=== PATIENT | female | born 1955 | race Hispanic/Latino ===

== ENCOUNTER 2019-11-08 09:40 | Emergency (ER) | payer OTHER ==
[2019-11-08] MEDS ORDERED: HYDROCODONE/APAP 5/325 MG TAB ONE (10:36)
--- NOTE | 2019-11-08 10:50 | RAD REPORT ---
EXAM DESCRIPTION: RAD - Hip Left 2 View - 11/08/2019 10:25 am CLINICAL HISTORY: PAIN COMPARISON: No comparisons FINDINGS: AP and frogleg views of the left hip were obtained. There is no fracture or dislocation. No AVN or focal femoral head abnormality. There are minimal dege nerative changes along the articular margins of the femoral head and acetabular rim. Medial joint spa ce is narrowed. No periarticular mass or hematoma. No soft tissue abnormality. IMPRESSION: Mild hip joint degenerative change with no acute findings seen.
--- NOTE | 2019-11-08 11:03 | ER ---
Nurse's Notes [facility] Name: Shantelle Hoover Age: 64 yrs Sex: Female : 1955 Arrival Date: 11/08/2019 Time: 09:46 Bed 20 Private MD: None, None Diagnosis: Contusion of left hip Presentation: 11/07 10:14 Chief complaint: Patient states: she fell 2 weeks ago on her left hip and is having pain with walking and activity. Coronavirus screen: Proceed with normal triage. Ebola Screen: No symptoms or risks identified at this time. Initial Sepsis Screen: Does the patient meet any 2 criteria? No. Patient's initial sepsis screen is negative. Does the patient have a suspected source of infection? No. Patient's initial sepsis screen is negative. Risk Assessment: Do you want to hurt yourself or someone else? Patient reports no desire to harm self or others. Onset of symptoms is unknown. 10:14 Method Of Arrival: Wheelchair 10:14 Acuity: JONATHAN 4 Historical: - Allergies: 10:20 No Known Allergies; - Home Meds: 10:20 Ibuprofen Oral [Active]; Acetaminophen Oral [Active]; alendronate oral oral [Active]; - PMHx: 10:20 Osteoporosis; - PSHx: 10:20 Hysterectomy; - Immunization history:: Adult Immunizations up to date. - Social history:: Smoking status: Patient denies any tobacco usage or history of. Patient/guardian denies using alcohol. Screenin:24 Abuse screen: Denies threats or abuse. Nutritional screening: No deficits noted. Tuberculosis screening: No symptoms or risk factors identified. Fall Risk None identified. Assessment: 10:21 General: Appears in no apparent distress. Behavior is calm, cooperative. Pain: Complains of pain in left hip Pain radiates to left leg Pain at worst was 10 out of 10 on a pain scale. Quality of pain is described as stabbing, Pain began 2 weeks ago Alleviated by medications, rest, Aggravated by increased activity, weight bearing. Neuro: Oriented to person, place, time, situation. Cardiovascular: Capillary refill < 3 seconds Patient's skin is warm and dry. Respiratory: Airway is patent Respiratory effort is even, unlabored. Derm: Skin is intact, is healthy with good turgor. Musculoskeletal: Range of motion: limited in left hip. Vital Signs: 10:00 BP 133 / 66; Pulse 50; Resp 16; Pulse Ox 100% ; ah 10:14 BP 133 / 66; Pulse 51; Resp 17; Temp 98.5; Pulse Ox 98% ; Weight 90.72 kg; Height 5 ft. ah 6 in. (167.64 cm); Pain 1/10; 11:00 BP 113 / 76; Pulse 46; Resp 16; Pulse Ox 95% ; ah 11:45 BP 116 / 60; Pulse 45; Resp 16; Pulse Ox 97% ; ah 10:14 Body Mass Index 32.28 (90.72 kg, 167.64 cm) ah 10:14 pain is 10/10 while walking ED Course: 09:46 Patient arrived in ED. dp 09:47 None, None is Private Physician. dp 09:54 Shalini Cardoso, RN is Primary Nurse. 09:54 Casey Kline NP is PHCP. pm1 09:54 Walt Thurston MD is Attending Physician. pm1 10:16 Triage completed. 10:24 Hip Left 2 View XRAY In Process Unspecified. EDMS 11:30 No provider procedures requiring assistance completed. Patient did not have IV access during this emergency room visit. 11:30 Patient has correct armband on for positive identification. Bed in low position. Call light in reach. Side rails up X 1. Administered Medications: 10:30 Drug: [place] 5 mg-325 mg 1 tabs Route: PO; 11:19 Follow up: Response: No adverse reaction 11:05 Drug: Lidoderm 5 % (700 mg/patch) 1 patches {Note: left hip.} Route: Topical; Site: affected area; 12:33 Follow up: Response: No adverse reaction Outcome: 11:02 Discharge ordered by . pm1 11:45 Discharged to home via wheelchair. 11:45 Condition: good 11:45 Discharge instructions given to patient, Instructed on discharge instructions, follow up and referral plans. medication usage, Demonstrated understanding of instructions, follow-up care, medications, Prescriptions given X 1. 12:33 Patient left the ED. Signatures: Dispatcher [employer] EDNE Casey Kline NP [employer] pm1 Quintin Fisher Amy, RN RN Corrections: (The following items were deleted from the chart) 12:31 11:00 BP 133 / 66; Pulse 50bpm; Resp 16bpm; Pulse Ox 100%; [facility]
--- NOTE | 2019-11-08 11:04 | EDPHYS ---
Physician Documentation [facility] Name: Shantelle Hoover Age: 64 yrs Sex: Female : 1955 Arrival Date: 11/08/2019 Time: 09:46 Bed 20 Private MD: None, None ED Physician Walt Thurston HPI: 11/07 10:32 This 64 yrs old Female presents to ER via Wheelchair with complaints of Hip pm1 pain. 10:32 The patient or guardian reports pain. sustained from a fall, while walking, There is no pm1 obvious deformity, The patient is able to self ambulate. The patient is able to bear their full body weight. There is no radiation of the patient's discomfort. The complaints affect the left hip. Onset: The symptoms/episode began/occurred 2 week(s) ago. Modifying factors: The symptoms are alleviated by rest, the symptoms are aggravated by weight bearing, walking. Associated signs and symptoms: Loss of consciousness: the patient experienced no loss of consciousness, Pertinent negatives: chest pain, dysuria, fever, nausea, shortness of breath, vomiting, numbness, weakness. Severity of symptoms: in the emergency department the symptoms are actually worse. The patient has not experienced similar symptoms in the past. The patient has not recently seen a physician. Historical: - Allergies: 10:20 No Known Allergies; ah - Home Meds: 10:20 Ibuprofen Oral [Active]; Acetaminophen Oral [Active]; alendronate oral oral [Active]; ah - PMHx: 10:20 Osteoporosis; ah - PSHx: 10:20 Hysterectomy; ah - Immunization history:: Adult Immunizations up to date. - Social history:: Smoking status: Patient denies any tobacco usage or history of. Patient/guardian denies using alcohol. ROS: 10:32 Constitutional: Negative for fever, chills, and weight loss, Eyes: Negative for injury, pm1 pain, redness, and discharge, ENT: Negative for injury, pain, and discharge, Neck: Negative for injury, pain, and swelling, Cardiovascular: Negative for chest pain, palpitations, and edema, Respiratory: Negative for shortness of breath, cough, wheezing, and pleuritic chest pain, Abdomen/GI: Negative for abdominal pain, nausea, vomiting, diarrhea, and constipation, Back: Negative for injury and pain. 10:32 Skin: Negative for injury, rash, and discoloration, Neuro: Negative for headache, weakness, numbness, tingling, and seizure. 10:32 MS/extremity: Positive for pain, of the left hip, Negative for decreased range of motion, deformity. Exam: 10:32 Constitutional: This is a well developed, well nourished patient who is awake, alert, pm1 and in no acute distress. Head/Face: Normocephalic, atraumatic. Neck: Trachea midline, no thyromegaly or masses palpated, and no cervical lymphadenopathy. Supple, full range of motion without nuchal rigidity, or vertebral point tenderness. No Meningismus. Chest/axilla: Normal chest wall appearance and motion. Nontender with no deformity. No lesions are appreciated. 10:32 Back: No spinal tenderness. No costovertebral tenderness. Full range of motion. Skin: Warm, dry with normal turgor. Normal color with no rashes, no lesions, and no evidence of cellulitis. 10:32 Cardiovascular: Exam negative for acute changes, Rate: normal, Rhythm: regular, Pulses: no pulse deficits are appreciated. 10:32 Respiratory: Exam negative for acute changes, respiratory distress, shortness of breath. 10:32 Abdomen/GI: Inspection: abdomen appears normal, Palpation: abdomen is soft and non-tender, in all quadrants. 10:32 Musculoskeletal/extremity: Extremities: grossly normal except: noted in the left hip: pain, There is no evidence of contusion, decreased ROM, deformity, ROM: intact in all extremities, full active range of motion, in the left hip and left leg, full passive range of motion, in the left leg and left hip, Circulation is intact in all extremities. Pulses: are normal with no appreciated deficits, noted to be 2+ in the left dorsalis pedis artery, the left leg Sensation intact. 10:32 Neuro: Exam negative for acute changes, Orientation: is normal, Mentation: is normal, Motor: moves all fours, strength is normal, strength is 5/5 in all extremities, Sensation: is normal, no obvious gross deficits. Vital Signs: 10:00 BP 133 / 66; Pulse 50; Resp 16; Pulse Ox 100% ; ah 10:14 BP 133 / 66; Pulse 51; Resp 17; Temp 98.5; Pulse Ox 98% ; Weight 90.72 kg; Height 5 ft. 6 in. (167.64 cm); Pain 1/10; 11:00 BP 113 / 76; Pulse 46; Resp 16; Pulse Ox 95% ; ah 11:45 BP 116 / 60; Pulse 45; Resp 16; Pulse Ox 97% ; ah 10:14 Body Mass Index 32.28 (90.72 kg, 167.64 cm) 10:14 pain is 10/10 while walking MDM: 09:55 Patient medically screened. pm1 11:01 Differential diagnosis: hip fracture, arthritis, strain, contusion. pm1 11:01 Data reviewed: vital signs. Data interpreted: Pulse oximetry: on room air is 98 %. pm1 Interpretation: normal. 11:01 Counseling: I had a detailed discussion with the patient and/or guardian regarding: the pm1 historical points, exam findings, and any diagnostic results supporting the discharge/admit diagnosis, radiology results, the need for outpatient follow up, to return to the emergency department if symptoms worsen or persist or if there are any questions or concerns that arise at home. 11/07 10:06 Order name: Hip Left 2 View XRAY; Complete Time: 11:00 pm1 Administered Medications: 10:30 Drug: [place] 5 mg-325 mg 1 tabs Route: PO; 11:19 Follow up: Response: No adverse reaction 11:05 Drug: Lidoderm 5 % (700 mg/patch) 1 patches {Note: left hip.} Route: Topical; Site: affected area; 12:33 Follow up: Response: No adverse reaction Disposition: 16:11 Co-signature as Attending Physician, Walt Thurston MD. rn Disposition: 11/08/19 11:02 Discharged to Home. Impression: Contusion of left hip. - Condition is Stable. - Discharge Instructions: Contusion. - Prescriptions for Tramadol 50 mg Oral Tablet - take 1 tablet by ORAL route every 8 hours as needed; 12 tablet. - Medication Reconciliation Form, Thank You Letter, Antibiotic Education, Prescription Opioid Use form. - Follow up: Emergency Department; When: As needed; Reason: Worsening of condition. Follow up: Private Physician; When: 2 - 3 days; Reason: Recheck today's complaints, Continuance of care, Re-evaluation by your physician. - Problem is new. - Symptoms have improved. Signatures: Dispatcher [employer] EDMS Walt Thurston MD MD rn Casey Kline NP [employer] pm1 Shalini Cardoso RN RN ah Corrections: (The following items were deleted from the chart) 12:33 11:02 11/08/2019 11:02 Discharged to Home. Impression: Contusion of left hip. Condition ah is Stable. Forms are Medication Reconciliation Form, Thank You Letter, Antibiotic Education, Prescription Opioid Use. Follow up: Emergency Department; When: As needed; Reason: Worsening of condition. Follow up: Private Physician; When: 2 - 3 days; Reason: Recheck today's complaints, Continuance of care, Re-evaluation by your physician. Problem is new. Symptoms have improved. pm1
[2019-11-08] MEDS ORDERED: LIDOCAINE 4% PATCH ONE (11:13)
[2019-11-08 12:43] VITALS: TEMP 98.5
[2019-11-08 12:46] VITALS: BP 116/60; O2SAT 97
== END 2019-11-08 12:33 | disposition home or self-care (01) ==
LOC: ER 09:40
DX: S70.02XA Contusion of left hip, initial encounter (principal); M81.0 Age-related osteoporosis without current pathological fracture
CPT/HCPCS: 99283

== ENCOUNTER 2022-03-01 14:07 | Emergency (ER) | payer MEDICARE ==
--- OUTSIDE RECORDS SUMMARY | 2022-03-01 14:11 | XMS REPORT | Continuity of Care Document ---
:1955 Author Organization [facility] t Address [address] [place] [address] Care Team Providers Name Role Phone PCP, PATIENT DOES NOT HAVE A Primary Care Physician Unavailjess Peralta MD, Michael Capellan Attending Clinician Love Reeves MD Attending Clinician LOVE REEVES Attending Clinician Unavailable Doctor Unassigned, [place] Attending Clinician Unavailable Radiology Attending Clinician Unavailable RADIOLOGY Attending Clinician Unavailable CHRIS CHEATHAM Attending Clinician Unavailable Nurse, Adc Pob Immunization Attending Clinician Unavailable Chris Cheatham DO Attending Clinician Provider, [facility] Attending Clinician Unavailable Rahel Walters Attending Clinician RAHEL SMITH Attending Clinician Unavailable LOVE REEVES Admitting Clinician Unavailable Payers Payer Name Policy Type Policy Number Effective Date Expiration Date Leona colón [facility] [id number] 2021 (MEDICARE 00:00:00 REPLACEMENT HMO) GISEL HIGHTOWER FROM [id number] 2020 [facility] 00:00:00 Problems Condition Condition Condition Status Onset Resolution Last Treating Co mments Source Name Details Category Date Date Treatment Clinician Date Gout Gout Disease Active Univers [facility] Osteoporos Osteoporos Disease Active U nivers is is [facility] Vitamin D Vitamin D Disease Active Uni vers deficiency deficiency it y of [facility] Controlled Controlled Disease Active U nivers type 2 type 2 ity of diabetes diabetes [place] mellitus mellitus Medica l without without Branch complicati complicati on, on, without without long-term long-term current current use of use of insulin insulin Allergies, Adverse Reactions, Alerts Allergy Allergy Status Severity Reaction(s) Onset Inactive Treating Comm ents Source Name Type Date Date Clinician NO KNOWN Drug Active Univers ALLERGIE Class ity of S [facility] Social History Social Habit Start Date Stop Date Quantity Comments Source History of Cigarette Smoker Universi ty of tobacco use [facility] Exposure to 2021-08-06 2021-09-05 Not sure [facility] SARS-CoV-2 00:00:00 14:45:00 [facility] (event) [place] Alcohol intake 2021-09-05 2021-09-05 Current University 00:00:00 00:00:00 non-drinker of [facility] alcohol (finding) [place] Tobacco use and 2015-10-19 2015-10-19 Never used Universit y of exposure 00:00:00 00:00:00 [facility] Sex [birth year] [facility] 00:00:00 00:00:00 Smoking Status Start Date Stop Date Source Tobacco smoking consumption [facility] unknown Never smoker [facility] Medications Ordered Filled Start Stop Current Ordering Indication Dosage Frequency Signature Comments Components Source Medication Medication Date Date Medication? Clinician (SIG) Name Name traMADoL 50 Yes [id number] 50mg Take 1 Univ ers mg tablet 6-10 tablet by ity o f 00:00: mouth [place] 00 every 6 Medical (six) Branch hours as needed for Pain (scale 4-6). Indication s: acute pain naproxen 2021- No [id number] 500mg Take 1 Univers 500 mg 6-10 06-21 tablet by ity of tablet 00:00: 04:59 mouth 2 [place] 00 :00 (two) Medical times Branch daily with meals for 10 days. CALCIUM 2016-06 Yes 1{tbl} Take 1 Univer s PHOSPHATE 2-19 tablet by ity o f DIBAS/VIT 13:15: mouth [place] D3 (VITAMIN 17 daily. Medica l D, WITH Branch CALCIUM, ORAL) CALCIUM 2016-06 Yes 1{tbl} Take 1 Univer s PHOSPHATE 2-19 tablet by ity o f DIBAS/VIT 13:15: mouth [place] D3 (VITAMIN 17 daily. Medica l D, WITH Branch CALCIUM, ORAL) CALCIUM 2016-06 Yes 1{tbl} Take 1 Univer s PHOSPHATE 2-19 tablet by ity o f DIBAS/VIT 13:15: mouth [place] D3 (VITAMIN 17 daily. Medica l D, WITH Branch CALCIUM, ORAL) CALCIUM 2016-06 Yes 1{tbl} Take 1 Univer s PHOSPHATE 2-19 tablet by ity o f DIBAS/VIT 13:15: mouth [place] D3 (VITAMIN 17 daily. Medica l D, WITH Branch CALCIUM, ORAL) CALCIUM 2016-06 Yes 1{tbl} Take 1 Univer s PHOSPHATE 2-19 tablet by ity o f DIBAS/VIT 13:15: mouth [place] D3 (VITAMIN 17 daily. Medica l D, WITH Branch CALCIUM, ORAL) CALCIUM 2016-06 Yes 1{tbl} Take 1 Univer s PHOSPHATE 2-19 tablet by ity o f DIBAS/VIT 13:15: mouth [place] D3 (VITAMIN 17 daily. Medica l D, WITH Branch CALCIUM, ORAL) acetaminoph 2016-06 2017- No Take by Un terence en 1-17 11-17 mouth ity of (TYLENOL) 13:26: 00:00 every 6 [place] 325 mg 49 :00 (six) Medical tablet hours as Branch needed. metFORMIN Yes [id number] 500mg Take 1 Univers 500 mg 4-06 tablet by ity of tablet 00:00: mouth [place] 00 daily. Medical Branch metFORMIN Yes [id number] 500mg Take 1 Univers 500 mg 4-06 tablet by ity of tablet 00:00: mouth [place] 00 daily. Medical Branch metFORMIN Yes [id number] 500mg Take 1 Univers 500 mg 4-06 tablet by ity of tablet 00:00: mouth [place] 00 daily. Medical Branch metFORMIN Yes [id number] 500mg Take 1 Univers 500 mg 4-06 tablet by ity of tablet 00:00: mouth [place] 00 daily. Medical Branch metFORMIN Yes [id number] 500mg Take 1 Univers 500 mg 4-06 tablet by ity of tablet 00:00: mouth [place] 00 daily. Medical Branch metFORMIN Yes [id number] 500mg Take 1 Univers 500 mg 4-06 tablet by ity of tablet 00:00: mouth [place] 00 daily. Medical Branch ibandronate 2017-0 Yes [id number] 150mg Take 1 Univers 150 mg 3-08 tablet by ity of tablet 00:00: mouth once [place] every Medical month. Branch Lancets 2017-0 Yes [id number] Diagnosis Univers Misc 3-08 code E11. ity of 00:00: Test 1 time Medical daily. Branch Blood-Gluco 2017-0 Yes [id number] Use as Univers se Meter 3-08 directed. ity of Kit 00:00: Brand per [place] 00 patient. Medical Branch blood sugar 2017-0 Yes [id number] Use as Univers diagnostic 3-08 directed. ity of strip 00:00: Patient may have Medical choice of Branch brand of strips. ibandronate 2017-0 Yes [id number] 150mg Take 1 Univers 150 mg 3-08 tablet by ity of tablet 00:00: mouth once every Medical month. Branch Lancets 2017-0 Yes [id number] Diagnosis Univers Misc 3-08 code E11. ity of 00:00: Test 1 time Medical daily. Branch Blood-Gluco 2017-0 Yes [id number] Use as Univers se Meter 3-08 directed. ity of Kit 00:00: Brand per patient. Medical Branch blood sugar 2017-0 Yes [id number] Use as Univers diagnostic 3-08 directed. ity of strip 00:00: Patient may have Medical choice of Branch brand of strips. ibandronate 2017-0 Yes [id number] 150mg Take 1 Univers 150 mg 3-08 tablet by ity of tablet 00:00: mouth once [place] every Medical month. Branch Lancets 2017-0 Yes [id number] Diagnosis Univers Misc 3-08 code E11. ity of 00:00: Test 1 time Medical daily. Branch Blood-Gluco 2017-0 Yes [id number] Use as Univers se Meter 3-08 directed. ity of Kit 00:00: Brand per patient. Medical Branch blood sugar 2017-0 Yes [id number] Use as Univers diagnostic 3-08 directed. ity of strip 00:00: Patient may have Medical choice of Branch brand of strips. ibandronate 2017-0 Yes [id number] 150mg Take 1 Univers 150 mg 3-08 tablet by ity of tablet 00:00: mouth once [place] 00 every Medical month. Branch Lancets 2017- Yes [id number] Diagnosis Univers Misc 3-08 code E11. ity of 00:00: Test 1 [place] time Medical daily. Branch Blood-Gluco 2017- Yes [id number] Use as Univers se Meter 3-08 directed. ity of Kit 00:00: Brand per [place] 00 patient. Medical Branch blood sugar 2016- Yes [id number] Use as Univers diagnostic 3-08 directed. ity of strip 00:00: Patient [place] 00 may have Medical choice of Branch brand of strips. ibandronate 2017- Yes [id number] 150mg Take 1 Univers 150 mg 3-08 tablet by ity of tablet 00:00: mouth once [place] 00 every Medical month. Branch Lancets Yes [id number] Diagnosis Univers Misc 3-08 code E11. ity of 00:00: Test 1 [place] time Medical daily. Branch Blood-Gluco 2016- Yes [id number] Use as Univers se Meter 3-08 directed. ity of Kit 00:00: Brand per [place] 00 patient. Medical Branch blood sugar Yes [id number] Use as Univers diagnostic 3-08 directed. ity of strip 00:00: Patient 00 may have Medical choice of Branch brand of strips. ibandronate 2017- Yes [id number] 150mg Take 1 Univers 150 mg 3-08 tablet by ity of tablet 00:00: mouth once [place] 00 every Medical month. Branch Lancets 2016- Yes [id number] Diagnosis Univers Misc 3-08 code E11. ity of 00:00: Test 1 [place] 00 time Medical daily. Branch Blood-Gluco 2017- Yes [id number] Use as Univers se Meter 3-08 directed. ity of Kit 00:00: Brand per [place] 00 patient. Medical Branch blood sugar Yes [id number] Use as Univers diagnostic 3-08 directed. ity of strip 00:00: Patient [place] 00 may have Medical choice of Branch brand of strips. levocetiriz 2017- No [id number] 5mg Take 1 Univers ine (XYZAL) 1-20 11-17 tablet by it y of 5 mg tablet 00:00: 00:00 [place] :00 every Medical evening. Branch ibuprofen 2017- No 800mg Take 1 Univ ers (MOTRIN) 11-28 11-17 tablet by lluvia lindsey 800 mg 00:00: 00:00 mouth [place] tablet 00 :00 every 8 Medical (eight) Branch hours as needed (headaches ). Immunizations Ordered Filled Immunization Date Status Comments [facility] Branch e Immunization Name Name SARS-COV-2 COVID-19 2021-05-13 Completed Unive rsity of MODERNA 0.25ML 00:00:00 [place] Medi patricia BOOSTER VACCINE Branch SARS-COV-2 COVID-19 2021-05-13 Completed Unive rsity of MODERNA BOOSTER 00:00:00 [place] Med ical VACCINE Branch SARS-COV-2 COVID-19 2021-05-13 Completed Unive rsity of MODERNA BOOSTER 00:00:00 [place] Med ical VACCINE Branch SARS-COV-2 COVID-19 2021-05-13 Completed Unive rsity of MODERNA BOOSTER 00:00:00 [place] Med ical VACCINE Branch SARS-COV-2 COVID-19 2021-05-13 Completed Unive rsity of MODERNA 0.25ML 00:00:00 [place] Medi patricia BOOSTER VACCINE Branch SARS-COV-2 COVID-19 2020-08-29 Completed Unive rsity of MODERNA VACCINE 00:00:00 [place] [facility] ical Branch SARS-COV-2 COVID-19 2020-08-29 Completed Unive rsity of MODERNA VACCINE 00:00:00 [facility] ical Branch SARS-COV-2 COVID-19 2020-08-29 Completed Unive rsity of MODERNA VACCINE 00:00:00 [place] [facility] ical Branch SARS-COV-2 COVID-19 2020-08-29 Completed Unive rsity of MODERNA VACCINE 00:00:00 [facility] ical Branch SARS-COV-2 COVID-19 2020-08-29 Completed Unive rsity of MODERNA VACCINE 00:00:00 [facility] ical Branch SARS-COV-2 COVID-19 2020-08-01 Completed Unive rsity of MODERNA VACCINE 00:00:00 [facility] ical Branch SARS-COV-2 COVID-19 2020-08-01 Completed Unive rsity of MODERNA VACCINE 00:00:00 [facility] ical Branch SARS-COV-2 COVID-19 2020-08-01 Completed Unive rsity of MODERNA VACCINE 00:00:00 [facility] SARS-COV-2 COVID-19 2020-08-01 Completed Unive rsity of MODERNA VACCINE 00:00:00 [facility] SARS-COV-2 COVID-19 2020-08-01 Completed Unive rsity of MODERNA VACCINE 00:00:00 [facility] Influenza Virus 2017-04-20 Completed Universit y of Vaccine Quad IM 3+ 00:00:00 [facility] Influenza Virus 2017-04-20 Completed Universit y of Vaccine Quad IM 3+ 00:00:00 [facility] Influenza Virus 2017-04-20 Completed Universit y of Vaccine Quad IM 3+ 00:00:00 [facility] Influenza Virus 2017-04-20 Completed Universit y of Vaccine Quad IM 3+ 00:00:00 [facility] Influenza Virus 2017-04-20 Completed Universit y of Vaccine Quad IM 3+ 00:00:00 [facility] Influenza Virus 2016-07-19 Completed Universit y of Vaccine Quad IM 3+ 00:00:00 [facility] Influenza Virus 2016-07-19 Completed Universit y of Vaccine Quad IM 3+ 00:00:00 [facility] Influenza Virus 2016-07-19 Completed Universit y of Vaccine Quad IM 3+ 00:00:00 [facility] Influenza Virus 2016-07-19 Completed Universit y of Vaccine Quad IM 3+ 00:00:00 [facility] Influenza Virus 2016-07-19 Completed Universit y of Vaccine Quad IM 3+ 00:00:00 [facility] Influenza Virus 2016-07-19 Completed Universit y of Vaccine Quad IM 3+ 00:00:00 [facility] Vital Signs Vital Name Observation Time Observation Value Comments Source Systolic blood 2021-11-11 17:33:00 157 mm[Hg] Univer sity of pressure [facility] Diastolic blood 2021-11-11 17:33:00 66 mm[Hg] Unive rsity of pressure [facility] Heart rate 2021-11-11 17:33:00 55 /min Universi ty of [facility] Body temperature 2021-11-11 17:33:00 36.56 Tiff[place] Univ ersity of [facility] Respiratory rate 2021-11-11 17:33:00 18 /min [facility] Body height 2021-11-11 17:33:00 165.1 cm [facility] Body weight 2021-11-11 17:33:00 90.719 kg [facility] BMI 2021-11-11 17:33:00 33.28 kg/m2 [facility] Oxygen saturation in 2021-11-11 17:33:00 99 /min [facility] Arterial blood by [facility] Pulse oximetry Branch Procedures Procedure Date / Time Performed Performing Clinician Rivera e NM BONE SCAN 3 PHASE 2022-01-11 19:48:00 [facility] MRI THORACIC SPINE WO 2022-01-10 17:24:47 [facility] CONTRAST CT THORACIC SPINE WO 2021-11-11 18:21:47 Love Reeves [facility] CONTRAST Medical Branch CONSENT/REFUSAL FOR 2021-11-11 17:30:43 Doctor Unassigned, No [facility] AND Name Medical Branch TREATMENT DEXA AXIAL (HIP AND 2021-09-05 20:28:00 Requisition, Paper [facility] SPINE) Medical Branch NOTICE OF PRIVACY 2021-09-05 19:45:34 Doctor Unassigned, No [facility] PRACTICES Name Medical Branch CONSENT/REFUSAL FOR 2021-09-05 19:45:11 [facility] Name Medical Branch TREATMENT ASSIGNMENT OF BENEFITS 2021-09-05 19:44:48 Doctor Unassigned, No [facility] Medical Branch SARS-COV-2 COVID-19 2021-05-13 21:40:58 Doctor Unassigned, [facility]INE [facility] BOOSTER,0.25ML,IM (MODERNA) Plan of Care Planned Activity Planned Date Details Comments Source Future Scheduled 2022-02-21 HEPATITIS B VACCINES [facility] Test 08:08:26 (1 of 3 - 3-dose series) [code = HEPATITIS B VACCINES (1 of 3 - 3-dose series)] Future Scheduled 2022-02-21 Hepatitis C screening [facility] Test 08:08:26 (procedure) [code = 178330046] Future Scheduled 2022-02-21 Screening for [facility] Test 08:08:26 malignant neoplasm of cervix (procedure) [code = 812753697] Future Scheduled 2022-02-21 BREAST CANCER [facility] Test 08:08:26 SCREENING [code = BREAST CANCER SCREENING] Future Scheduled 2022-02-21 COLONOSCOPY SCREENING [facility] Test 08:08:26 [code = COLONOSCOPY SCREENING] Future Scheduled 2022-02-21 SHINGLES VACCINES (1 Met [facility] Test 08:08:26 of 2) [code = SHINGLES VACCINES (1 of 2)] Future Scheduled 2022-02-21 COVID-19 VACCINE (4 - [facility] Test 08:08:26 Booster for Moderna series) [code = COVID-19 VACCINE (4 - Booster for Moderna series)] Future Scheduled 2022-02-21 INFLUENZA VACCINE Method [facility] Test 08:08:26 [code = INFLUENZA VACCINE] Future Scheduled 2022-02-21 65+ PNEUMOCOCCAL [facility] Test 08:08:26 VACCINE (2 - PCV) [code = 65+ PNEUMOCOCCAL VACCINE (2 - PCV)] Encounters Start End Encounter Admission Attending Care Care Encounter Source Date/Time Date/Time Type Type Clinicians Facility Department ID 2022-01-11 2022-01-11 [facility], 1.2.840.1 [id number] Methodi 10:47:41 23:59:00 Encounter Michael YolandeTiffany [id number] 3.430.2.7 Hospit a .3.117895 l .8 2022-01-11 2022-01-11 [facility], 1.2.840.1 [id number] Methodi 10:47:30 23:59:00 Encounter Michael Capellan [id number] 3.430.2.7 Hospit a .3.915751 l .8 2022-01-11 2022-01-11 Travel 1.2.840.1 [id number] [id number] Methodi 00:00:00 00:00:[address] 3.430.2.7 0.2.7.3.698 Ho spita .3.565801 084.8 l .8 2022-01-11 2022-01-11 Outpatient BINDAL, [facility] [id number] [place] 00:00:00 00:00:00 MICHAEL [address] 2022-01-11 2022-01-11 Outpatient BINDAL, [facility] [id number] [place] 00:00:00 00:00:00 MICHAEL [address] 2022-01-10 2022-01-10 Outpatient BINDAL, [facility] [id number] [place] 00:00:00 00:00:00 MICHAEL [address] 2022-01-03 2022-01-03 Travel 1.2.840.1 [id number] [id number] Methodi 00:00:00 00:00:[address] 3.430.2.7 0.2.7.3.698 Ho spita .3.234197 084.8 l .8 2021-12-30 2021-12-30 Transcribe Bindal, 1.2.840.1 [id number] Methodi 00:00:00 00:00:00 Orders Michael Capellan [id number] 3.430.2.7 Hospit a .3.283825 l .8 2021-12-16 2021-12-16 [place] [id number] Devoted 06:12:00 06:12:00 0715 Medica l Group 2021-11-19 2021-11-19 Outpatient R [facility] [id number] Univers 09:45:00 09:45:00 [id number] ity of [facility] 2021-11-11 2021-11-11 Emergency Tyrell WALUIZA 1.2.427.932 [id number] Univers 12:36:00 18:17:00 Love DELGADO 350.1.13.10 i ty [facility] 4.2.7.2.[address] [facility] [id number] [place] [id number] Branch 2021-11-11 2021-11-11 Emergency X TYRELL [facility] ERT [id number] Univers 12:36:00 18:17:00 LOVE ity [facility] 2021-11-11 2021-11-11 Orders Doctor BEVERLEY 1.2.840.114 [id number] Univers 00:00:00 00:00:00 Only Unassigned, HONG 350.1.13.10 ity of [place] [facility] 4.2.7.2.686 Dave as [id number] [facility] 009 Branch 2021-11-01 2021-11-01 [id number] [facility] 09:01:00 09:01:00 0531 Medica l Group 2021-09-14 2021-09-14 Outpatient DMG [facility] [id number] [facility] 02:00:00 02:00:00 0413 Medica l Group 2021-09-05 2021-09-05 [facility] Radiology [facility] 1.2.840.114 [id number] Univers 14:50:47 23:59:00 Encounter [place] 350.1.13.10 ity [place] [id number] [facility] 800 Branch 2021-09-05 2021-09-05 Outpatient R RADIOLOGY [facility] [id number] Univers 15:00:00 15:00:00 [id number] ity [facility] 2021-09-05 2021-09-05 Outpatient R RADIOLOGY [facility] RAD [id number] Univers 14:45:56 14:49:00 ity [facility] 2021-09-05 2021-09-05 [facility] Radiology [facility] 1.2.840.114 [id number] Univers 14:40:00 14:49:00 Encounter [place] 350.1.13.10 ity of [place] [id number] [facility] 800 Branch 2021-08-05 2021-08-05 Outpatient R RADIOLOGY [facility] [id number] Univers 14:00:00 14:00:00 [id number] ity [facility] 2021-05-13 2021-05-13 Outpatient R JESUS, [facility] [id number] Univers 15:00:00 14:54:16 CHRIS ity [facility] 2021-05-13 2021-05-13 Imm/Inj Nurse, Adc Pob Immunization [facility] 1.2.840.114 [id number] Univers 14:54:04 14:54:16 Visit Jesus Chrisleona DELGADO 350.1.13 .10 ity of [facility] 4.2.7.2.[place] [id number] Me dical NAL [address] [facility] 2021-05-11 2021-05-11 Outpatient R RADIOLOGY [facility] [id number] Univers 00:00:00 00:00:00 [id number] ity [facility] 2021-03-25 2021-03-25 Outpatient DMG DMG [id number] [facility] 12:01:00 12:01:00 1022 Medica l Group 2020-08-29 2020-08-29 Outpatient [facility] [id number] Univers 10:55:00 10:55:00 ity [facility] 2020-08-01 2020-08-01 Outpatient [facility] [id number] Univers 11:45:00 11:45:00 ity [facility] 2020-04-27 2020-04-27 Outpatient R [facility] [id number] Univers 11:30:00 11:30:00 [id number] [facility] 2017-02-05 2017-02-05 Urgent Provider, [facility] 1.2.840.114 [id number] Univers 13:45:00 14:00:00 Care [facility] 350.1.13.10 ity of SURGICAL 4.2.7.2.686 Dave as SPECIALTI [id number] Ok dical ES [address] [place] [facility] 2017-02-05 2017-02-05 Outpatient R [facility] [id number] Univers 13:45:00 13:45:00 [facility] Results This patient has no known results.
--- NOTE | 2022-03-01 15:47 | RAD REPORT ---
EXAM DESCRIPTION: RAD - Elbow Left 3 View - 03/01/2022 3:23 pm CLINICAL HISTORY: Left elbow pain status post trauma FINDINGS: No fracture or dislocation is seen.
--- NOTE | 2022-03-01 15:48 | RAD REPORT ---
EXAM DESCRIPTION: RAD - Shoulder Left 2 View - 03/01/2022 3:23 pm CLINICAL HISTORY: Left shoulder pain status post fall FINDINGS: No fracture or dislocation is seen. Moderate osteoarthritis AC joint. If patient continues have symptoms to suggest an occult fracture or tendon injury MRI would be recomm ended
--- NOTE | 2022-03-01 15:59 | RAD REPORT ---
EXAM DESCRIPTION: Beatriz Single View03/01/2022 3:23 pm CLINICAL HISTORY: Chest pain COMPARISON: none FINDINGS: Mild prominence of mediastinum. The lungs appear clear of acute infiltrate. The heart is normal size IMPRESSION: Mild prominence of mediastinum probably either mediastinal fat or normal vasculature. L ymphadenopathy can also have this appearance. Follow up PA and lateral chest series in couple months recommended for re-evaluation
[2022-03-01] MEDS ORDERED: HYDROCODONE/APAP 7.5/325 MG TAB ONE (16:04)
--- NOTE | 2022-03-01 16:04 | EDPHYS ---
Physician Documentation [facility] Name: Shantelle Hoover Age: 66 yrs Sex: Female : 1955 Arrival Date: 03/01/2022 Time: 14:10 Bed 9 Private MD: ED Physician Walt Thurston HPI: 03/01 15:15 This 66 yrs old Female presents to ER via Ambulatory with complaints of left jl9 shoulder and left elbow pain s/p tripping and falling onto her left side yesterday. . 15:15 Details of fall: The patient fell from an upright position. Onset: The symptoms/episode jl9 began/occurred yesterday. Associated injuries: The patient sustained left shoulder and left elbow. Severity of symptoms: in the emergency department the symptoms a " 4" out of "10". Historical: - Allergies: 14:19 No Known Allergies; bm7 - Home Meds: 14:19 alendronate Oral [Active]; bm7 - PMHx: 14:19 Osteoporosis; Diabetes mellitus; bm7 - PSHx: 14:19 None; bm7 - Immunization history:: Adult Immunizations up to date, Client reports receiving the 2nd dose of the Covid vaccine, Client reports receiving the 1st dose of the Covid vaccine. - Social history:: Smoking status: Patient denies any tobacco usage or history of. ROS: 15:16 Constitutional: Negative for fever, chills, and weight loss, Eyes: Negative for injury, jl9 pain, redness, and discharge, ENT: Negative for injury, pain, and discharge, Neck: Negative for injury, pain, and swelling, Cardiovascular: Negative for chest pain, palpitations, and edema, Respiratory: Negative for shortness of breath, cough, wheezing, and pleuritic chest pain, Abdomen/GI: Negative for abdominal pain, nausea, vomiting, diarrhea, and constipation, Back: Negative for injury and pain, : Negative for injury, bleeding, discharge, and swelling. 15:16 Skin: Negative for injury, rash, and discoloration, Neuro: Negative for headache, weakness, numbness, tingling, and seizure, Psych: Negative for depression, anxiety, suicide ideation, homicidal ideation, and hallucinations, Allergy/Immunology: Negative for hives, rash, and allergies, Endocrine: Negative for neck swelling, polydipsia, polyuria, polyphagia, and marked weight changes, Hematologic/Lymphatic: Negative for swollen nodes, abnormal bleeding, and unusual bruising. 15:16 MS/extremity: Positive for left shoulder pain and left elbow pain. . Exam: 15:16 Constitutional: This is a well developed, well nourished patient who is awake, alert, jl9 and in no acute distress. Head/Face: Normocephalic, atraumatic. Eyes: Pupils equal round and reactive to light, extra-ocular motions intact. Lids and lashes normal. Conjunctiva and sclera are non-icteric and not injected. Cornea within normal limits. Periorbital areas with no swelling, redness, or edema. ENT: Mucous membranes moist. Neck: Trachea midline, no thyromegaly or masses palpated, and no cervical lymphadenopathy. Supple, full range of motion without nuchal rigidity, or vertebral point tenderness. No Meningismus. 15:16 Chest/axilla: Normal chest wall appearance and motion. Nontender with no deformity. No lesions are appreciated. Cardiovascular: Regular rate and rhythm with a normal S1 and S2. No gallops, murmurs, or rubs. Normal PMI, no JVD. No pulse deficits. Respiratory: Lungs have equal breath sounds bilaterally, clear to auscultation and percussion. No rales, rhonchi or wheezes noted. No increased work of breathing, no retractions or nasal flaring. Abdomen/GI: Soft, non-tender, with normal bowel sounds. No distension or tympany. No guarding or rebound. No evidence of tenderness throughout. Back: No spinal tenderness. No costovertebral tenderness. Full range of motion. Skin: Warm, dry with normal turgor. Normal color with no rashes, no lesions, and no evidence of cellulitis. 15:16 Neuro: Awake and alert, GCS 15, oriented to person, place, time, and situation. Cranial nerves II-XII grossly intact. Motor strength 5/5 in all extremities. Sensory grossly intact. Cerebellar exam normal. Normal gait. Psych: Awake, alert, with orientation to person, place and time. Behavior, mood, and affect are within normal limits. 15:16 Musculoskeletal/extremity: Extremities: grossly normal except: pain, ROM: limited active range of motion due to pain, in the left arm, Circulation is intact in all extremities. Sensation intact. Vital Signs: 14:17 BP 113 / 84; Pulse 62; Resp 16; Temp 98.9(O); Pulse Ox 98% on R/A; Weight 93.44 kg (R); bm7 Height 5 ft. 4 in. (162.56 cm); Pain 10/10; 14:17 Body Mass Index 35.36 (93.44 kg, 162.56 cm) bm7 MDM: 14:25 Patient medically screened. jl9 15:16 Data reviewed: vital signs, nurses notes. jl9 16:02 Counseling: I had a detailed discussion with the patient and/or guardian regarding: the 9 historical points, exam findings, and any diagnostic results supporting the discharge/admit diagnosis, radiology results, the need for outpatient follow up, to return to the emergency department if symptoms worsen or persist or if there are any questions or concerns that arise at home. 03/01 14:21 Order name: XRAY Shoulder LEFT 2 view; Complete Time: 16:00 9 03/01 14:21 Order name: XRAY Chest (1 view); Complete Time: 16:01 9 03/01 14:21 Order name: XRAY Elbow LEFT 3 view; Complete Time: 16:00 9 03/01 16:01 Order name: Sling; Complete Time: 16:03 jl9 Administered Medications: 16:14 Drug: [place] (HYDROcodone-acetaminophen) (7.5 mg-325 mg) 1 tabs Route: PO; 7 16:14 Follow up: Response: No adverse reaction bm7 Disposition: 17:31 Co-signature as Attending Physician, Walt Thurston MD. rn Disposition Summary: 03/01/22 16:03 Discharge Ordered Location: Home jl9 Condition: Stable jl9 Diagnosis - Pain in left shoulder jl9 Followup: jl9 - With: Private Physician - When: 1 - 2 days - Reason: Recheck today's complaints, Continuance of care, Re-evaluation by your physician Discharge Instructions: - Discharge Summary Sheet jl9 - Shoulder Pain, [id number] jl9 - Fall Prevention in the Home, Adult, [id number] jl9 Forms: - Medication Reconciliation Form jl9 - Thank You Letter jl9 - Antibiotic Education jl9 - Prescription Opioid Use jl9 Prescriptions: - Ibuprofen 600 mg Oral Tablet - take 1 tablet by ORAL route every 6 hours As needed take with food; 30 tablet; jl9 Refills: 0, Product Selection Permitted Signatures: Dispatcher [employer] EDWalt Marquez MD MD rn McCarthy, Brittany, RN RN bm7 Linares, John jl9 Corrections: (The following items were deleted from the chart) 16:03 15:15 This 66 yrs old Female presents to ER via Ambulatory with complaints of jl9 left shoulder and left elbow pain s/p falling onto her left side yesterday. . jl9
--- NOTE | 2022-03-01 16:04 | ER ---
Nurse's Notes [facility] Name: Shantelle Hoover Age: 66 yrs Sex: Female : 1955 Arrival Date: 03/01/2022 Time: 14:10 Bed 9 Private MD: Diagnosis: Pain in left shoulder Presentation: 03/01 14:17 Chief complaint: Patient states: I tripped and fell on the floor and landed on my left 7 shoulder and elbow and I have been taking tylenol but it hasnt helped and now it hurts when I breathe into my back. Coronavirus screen: At this time, the client does not indicate any symptoms associated with coronavirus-19. Ebola Screen: No symptoms or risks identified at this time. Initial Sepsis Screen: Does the patient meet any 2 criteria? No. Patient's initial sepsis screen is negative. Does the patient have a suspected source of infection? No. Patient's initial sepsis screen is negative. Risk Assessment: Do you want to hurt yourself or someone else? Patient reports no desire to harm self or others. Onset of symptoms is unknown. 14:17 Method Of Arrival: Ambulatory [facility] 14:17 Acuity: JONATHAN 3 bm7 Triage Assessment: 14:19 General: Appears in no apparent distress. uncomfortable, obese, Behavior is calm, bm7 cooperative, appropriate for age. Pain: Complains of pain in back and left arm. EENT: No deficits noted. No signs and/or symptoms were reported regarding the EENT system. Neuro: No deficits noted. Cardiovascular: No deficits noted. Respiratory: Reports pain with movement pain with respiration. GI: No deficits noted. No signs and/or symptoms were reported involving the gastrointestinal system. : No deficits noted. No signs and/or symptoms were reported regarding the genitourinary system. Derm: No deficits noted. No signs and/or symptoms reported regarding the dermatologic system. Musculoskeletal: Reports pain in back and left arm. Historical: - Allergies: 14:19 No Known Allergies; bm7 - Home Meds: 14:19 alendronate Oral [Active]; bm7 - PMHx: 14:19 Osteoporosis; Diabetes mellitus; bm7 - PSHx: 14:19 None; bm7 - Immunization history:: Adult Immunizations up to date, Client reports receiving the 2nd dose of the Covid vaccine, Client reports receiving the 1st dose of the Covid vaccine. - Social history:: Smoking status: Patient denies any tobacco usage or history of. Screenin:25 Abuse screen: Denies threats or abuse. Denies injuries from another. Nutritional hb screening: No deficits noted. Tuberculosis screening: No symptoms or risk factors identified. Fall Risk None identified. Assessment: 15:25 General: SEE TRIAGE ASSESSMENT. hb 16:14 Reassessment: Patient and/or family updated on plan of care and expected duration. Pain bm7 level reassessed. Patient is alert, oriented x 3, equal unlabored respirations, skin warm/dry/pink. Patient states feeling better. Patient states symptoms have improved. Vital Signs: 14:17 BP 113 / 84; Pulse 62; Resp 16; Temp 98.9(O); Pulse Ox 98% on R/A; Weight 93.44 kg (R); bm7 Height 5 ft. 4 in. (162.56 cm); Pain 10/10; 14:17 Body Mass Index 35.36 (93.44 kg, 162.56 cm) bm7 ED Course: 14:10 Patient arrived in ED. mr 14:19 Triage completed. bm7 14:19 Arm band placed on right wrist. bm7 14:20 Karan Infante is PHCP. jl9 14:20 Walt Thurston MD is Attending Physician. jl9 15:25 XRAY Shoulder LEFT 2 view In Process Unspecified. EDMS 15:25 XRAY Chest (1 view) In Process Unspecified. EDMS 15:25 XRAY Elbow LEFT 3 view In Process Unspecified. EDMS 15:25 Capri Proctor, RN is Primary Nurse. hb 15:25 Patient has correct armband on for positive identification. hb 16:14 Warm blanket given. Assisted to bathroom. bm7 16:14 No provider procedures requiring assistance completed. Patient did not have IV access bm7 during this emergency room visit. Patient maintains SpO2 saturation greater than 95% on room air. Sling applied to left arm. Administered Medications: 16:14 Drug: [place] (HYDROcodone-acetaminophen) (7.5 mg-325 mg) 1 tabs Route: PO; bm7 16:14 Follow up: Response: No adverse reaction bm7 Medication: 15:25 VIS not applicable for this client. hb Outcome: 16:03 Discharge ordered by MD. jl9 16:14 Discharged to home ambulatory. bm7 16:14 Condition: good 16:14 Discharge instructions given to patient, Instructed on discharge instructions, follow up and referral plans. medication usage, Demonstrated understanding of instructions, follow-up care, medications, Prescriptions given X 1. 16:16 Patient left the ED. bm7 Signatures: Dispatcher [employer] EDTX SantanaCharissa Heather, RN RN hb McCarthy, Brittany, RN RN bm7 Karan Infante
[2022-03-03 09:32] VITALS: BP 113/84; TEMP 98.9; O2SAT 98
== END 2022-03-01 16:16 | disposition home or self-care (01) ==
LOC: ER 14:07
DX: M25.512 Pain in left shoulder (principal); E11.9 Type 2 diabetes mellitus without complications
CPT/HCPCS: 71045; 99284

== ENCOUNTER 2022-10-17 09:34 | Emergency (ER) | payer MEDICARE ==
--- OUTSIDE RECORDS SUMMARY | 2022-10-17 09:38 | XMS REPORT | Continuity of Care Document ---
:1955 Author Organization [facility] t Address [address] [facility] [address] [place] [id number] Care Team Providers Name Role Phone Perry Melara DO Primary Care Physician Paty Barton Attending Clinician Fages_C Attending Clinician Unavailable Nodal_J Attending Clinician Unavailable Fabian GOMEZ, Michael Capellan Attending Clinician Love Reeves MD Attending Clinician LOVE REEVES Attending Clinician Unavailable Doctor Unassigned, [place] Attending Clinician Unavailable Radiology Attending Clinician Unavailable RADIOLOGY Attending Clinician Unavailable CHRIS CHEATHAM Attending Clinician Unavailable Nurse, Adc Pob Immunization Attending Clinician Unavailable Chris Cheatham DO Attending Clinician Provider, [facility] Attending Clinician Unavailable Rahel Walters Attending Clinician RAHEL SMITH Attending Clinician Unavailable Fages_C Admitting Clinician Unavailable Nodal_J Admitting Clinician Unavailable LOVE REEVES Admitting Clinician Unavailable Payers Payer Name Policy Type Policy Number Effective Date Expiration Date S eldon [facility] [id number] 2021 (MEDICARE 00:00:00 REPLACEMENT HMO) GISEL HIGHTOWER FROM [id number] 2020 [facility] 00:00:00 Problems Condition Condition Condition Status Onset Resolution Last Treating Co mments Source Name Details Category Date Date Treatment Clinician Date Gout Gout Disease Active [facility] Osteoporos Osteoporos Disease Active U nivers is is [facility] Vitamin D Vitamin D Disease Active Uni vers deficiency deficiency it y [facility] Controlled Controlled Disease Active U nivers type 2 type 2 ity of diabetes diabetes [place] mellitus mellitus Medica l without without Branch complicati complicati on, on, without without long-term long-term current current use of use of insulin insulin Allergies, Adverse Reactions, Alerts Allergy Allergy Status Severity Reaction(s) Onset Inactive Treating Comm ents Source Name Type Date Date Clinician NO KNOWN Drug Active Univers ALLERGIE Class ity of [facility] Social History Social Habit Start Date Stop Date Quantity Comments Source History of tobacco Cigarette Smoker [facility] Gender identity [facility] Sexual orientation Method t Hospital Exposure to 2021-08-06 2021-09-05 Not sure [facility] SARS-CoV-2 (event) 00:00:00 14:45:00 [facility] Alcohol intake 2021-09-05 2021-09-05 Current University of 00:00:00 00:00:00 non-drinker of [facility] alcohol Fields (finding) Tobacco use and 2015-10-19 2015-10-19 [facility] 00:00:00 [facility] Sex [birth year] [employer] 00:00:00 00:00:00 Hospital Smoking Status Start Date Stop Date Source Tobacco smoking consumption Meth [facility] unknown Never smoker [facility] Medications Ordered Filled Start Stop Current Ordering Indication Dosage Frequency Signature Comments Components Source Medication Medication Date Date Medication? Clinician (SIG) Name Name traMADoL 50 Yes [id number] 50mg Take 1 Univ ers mg tablet 6-10 tablet by ity o f 00:00: mouth [place] 00 every 6 Medical (six) Branch hours as needed for Pain (scale 4-6). Indication s: acute pain naproxen 2021- No [id number] 500mg Take 1 Univers 500 mg 6-10 06-21 tablet by ity of tablet 00:00: 04:59 mouth 2 [place] 00 :00 (two) Medical times Branch daily [...] tablet hours as Branch needed. metFORMIN Yes [id number] 500mg Take 1 Univers 500 mg 4-06 tablet by ity of tablet 00:00: mouth [place] 00 daily. Medical Branch metFORMIN Yes [id number] 500mg Take 1 Univers 500 mg 4-06 tablet by ity of tablet 00:00: mouth [place] 00 daily. Medical Branch metFORMIN Yes [id number] 500mg Take 1 Univers 500 mg 4-06 tablet by ity of tablet 00:00: mouth [place] 00 daily. Medical Branch metFORMIN Yes [id number] 500mg Take 1 Univers 500 mg 4-06 tablet by ity of tablet 00:00: mouth [place] 00 daily. Medical Branch metFORMIN 2017-0 Yes [id number] 500mg Take 1 Univers 500 mg 4-06 tablet by ity of tablet 00:00: mouth [place] 00 daily. Medical Branch metFORMIN 2017-0 Yes [id number] 500mg Take 1 Univers 500 mg 4-06 tablet by ity of tablet 00:00: mouth [place] 00 daily. Medical Branch Lancets 2017-0 Yes [id number] Diagnosis Univers Misc 3-08 code E11. ity of 00:00: Test 1 time Medical daily. Branch Blood-Gluco 2017-0 Yes [id number] Use as Univers se Meter 3-08 directed. ity of Kit 00:00: Brand per 00 patient. Medical Branch blood sugar 2017-0 Yes [id number] Use as Univers diagnostic 3-08 directed. ity of strip 00:00: Patient may have Medical choice of Branch brand of strips. ibandronate 2017-0 Yes [id number] 150mg Take 1 Univers 150 mg 3-08 tablet by ity of tablet 00:00: mouth once every Medical month. Branch Lancets 2017-0 Yes [id number] Diagnosis Univers Misc 3-08 code E11. ity of 00:00: Test time Medical daily. Branch Blood-Gluco 2017-0 Yes [id number] Use as Univers se Meter 3-08 directed. ity of Kit 00:00: Brand per patient. Medical Branch blood sugar 2017-0 Yes [id number] Use as Univers diagnostic 3-08 directed. ity of strip 00:00: Patient may have Medical choice of Branch brand of strips. ibandronate 2017-0 Yes [id number] 150mg Take 1 Univers 150 mg 3-08 tablet by ity of tablet 00:00: mouth once every Medical month. Branch Lancets 2017-0 Yes [id number] Diagnosis Univers Misc 3-08 code E11. ity of 00:00: Test 1 time Medical daily. Branch Blood-Gluco 2017-0 Yes [id number] Use as Univers se Meter 3-08 directed. ity of Kit 00:00: Brand per 00 patient. Medical Branch blood sugar 2017-0 Yes [id number] Use as Univers diagnostic 3-08 directed. ity of strip 00:00: Patient 00 may have Medical choice of Branch brand of strips. ibandronate 2017-0 Yes [id number] 150mg Take 1 Univers 150 mg 3-08 tablet by ity of tablet 00:00: mouth once [place] 00 every Medical month. Branch Lancets 2017-0 Yes [id number] Diagnosis Univers Misc 3-08 code E11. ity of 00:00: Test 1 [place] time Medical daily. Branch Blood-Gluco 2017-0 Yes [id number] Use as Univers se Meter 3-08 directed. ity of Kit 00:00: Brand per [place] 00 patient. Medical Branch blood sugar 2017-0 Yes [id number] Use as Univers diagnostic 3-08 directed. ity of strip 00:00: Patient 00 may have Medical choice of Branch brand of strips. ibandronate 2017-0 Yes [id number] 150mg Take 1 Univers 150 mg 3-08 tablet by ity of tablet 00:00: mouth once [place] every Medical month. Branch Lancets 2017-0 Yes [id number] Diagnosis Univers Misc 3-08 code E11. ity of 00:00: Test 1 [place] time Medical daily. Branch Blood-Gluco 2017-0 Yes [id number] Use as Univers se Meter 3-08 directed. ity of Kit 00:00: Brand per 00 patient. Medical Branch blood sugar 2017-0 Yes [id number] Use as Univers diagnostic 3-08 directed. ity of strip 00:00: Patient 00 may have Medical choice of Branch brand of strips. ibandronate 2017-0 Yes [id number] 150mg Take 1 Univers 150 mg 3-08 tablet by ity of tablet 00:00: mouth once [place] every Medical month. Branch Lancets 2017-0 Yes [id number] Diagnosis Univers Misc 3-08 code E11. ity of 00:00: Test 1 [place] 00 time Medical daily. Branch Blood-Gluco 2017-0 Yes [id number] Use as Univers se Meter 3-08 directed. ity of Kit 00:00: Brand per [place] 00 patient. Medical Branch blood sugar 2017-0 Yes [id number] Use as Univers diagnostic 3-08 directed. ity of strip 00:00: Patient 00 may have Medical choice of Branch brand of strips. ibandronate 2017-0 Yes [id number] 150mg Take 1 Univers 150 mg 3-08 tablet by ity of tablet 00:00: mouth once [place] 00 every Medical month. Branch levocetiriz 2017- No [id number] 5mg Take 1 Univers ine (XYZAL) 1-20 11-17 tablet by it y of 5 mg tablet 00:00: 00:00 [place] :00 every Medical evening. Branch ibuprofen 2017- No 800mg Take 1 Univ ers (MOTRIN) 6-27 11-17 tablet by ity o f 800 mg 00:00: 00:00 mouth [place] tablet 00 :00 every 8 Medical (eight) Branch hours as needed (headaches ). Immunizations Ordered Filled Immunization Date Status Comments [facility] e Immunization Name Name SARS-COV-2 COVID-19 2021-05-13 [...] Unive rsity of MODERNA VACCINE 00:00:00 [place] Med ical Branch SARS-COV-2 COVID-19 2020-08-29 Completed Unive rsity of MODERNA VACCINE 00:00:00 [place] Med ical Branch SARS-COV-2 COVID-19 2020-08-29 Completed Unive rsity of MODERNA VACCINE 00:00:00 [place] Med ical Branch SARS-COV-2 COVID-19 2020-08-29 Completed Unive rsity of MODERNA VACCINE 00:00:00 [place] Med ical Branch SARS-COV-2 COVID-19 2020-08-29 Completed Unive rsity of MODERNA VACCINE 00:00:00 [place] Med ical Branch SARS-COV-2 COVID-19 2020-08-01 Completed Unive rsity of MODERNA VACCINE 00:00:00 [facility] SARS-COV-2 COVID-19 2020-08-01 Completed Unive rsity of MODERNA VACCINE 00:00:00 [facility] SARS-COV-2 COVID-19 2020-08-01 Completed Unive rsity of MODERNA VACCINE 00:00:00 [facility] SARS-COV-2 COVID-19 2020-08-01 Completed Unive rsity of MODERNA VACCINE 00:00:00 [facility] SARS-COV-2 COVID-19 2020-08-01 Completed Unive rsity of MODERNA VACCINE 00:00:00 [facility] Influenza Virus 2017-04-20 Completed Universit y of Vaccine Quad IM 3+ 00:00:00 [facility] Influenza Virus 2017-04-20 Completed Universit y of Vaccine Quad IM 3+ 00:00:00 [facility] Influenza Virus 2017-04-20 Completed Universit y of Vaccine Quad IM 3+ 00:00:00 [facility] Influenza Virus 2017-04-20 Completed Universit y of Vaccine Quad IM 3+ 00:00:00 [facility] Influenza Virus 2017-04-20 Completed Universit y of Vaccine Quad IM 3+ 00:00:00 [facility] Influenza Virus 2016-07-19 Completed Universit y of Vaccine Quad IM 3+ 00:00:00 [facility] Influenza Virus 2016-07-19 Completed Universit y of Vaccine Quad IM 3+ 00:00:00 [facility] Influenza Virus 2016-07-19 Completed Universit y of Vaccine Quad IM 3+ 00:00:00 [facility] Influenza Virus 2016-07-19 Completed Universit y of Vaccine Quad IM 3+ 00:00:00 [facility] Influenza Virus 2016-07-19 Completed Universit y of Vaccine Quad IM 3+ 00:00:00 [facility] Influenza Virus 2016-07-19 Completed Universit y of Vaccine Quad IM 3+ 00:00:00 [facility] Vital Signs Vital Name Observation Time Observation Value Comments Source Systolic blood 2021-11-11 17:33:00 157 mm[Hg] Univer sity of pressure [facility] Diastolic blood 2021-11-11 17:33:00 66 mm[Hg] Unive rsity of pressure [facility] Heart rate 2021-11-11 17:33:00 55 /min [facility] Body temperature 2021-11-11 17:33:00 36.56 Tiffanie [facility] Respiratory rate 2021-11-11 17:33:00 18 /min [facility] Body height 2021-11-11 17:33:00 165.1 cm [facility] Body weight 2021-11-11 17:33:00 90.719 kg [facility] BMI 2021-11-11 17:33:00 33.28 kg/m2 [facility] Oxygen saturation in 2021-11-11 17:33:00 99 /min [facility] Arterial blood by [facility] Pulse oximetry Branch Procedures Procedure Date / Time Performed Performing Clinician Sourc e XR THORACIC SPINE 2 VW 2022-03-22 17:04:50 [facility] NM BONE SCAN 3 PHASE 2022-01-11 19:48:[address] [facility] MRI THORACIC SPINE WO 2022-01-10 17:24:47 [facility] CONTRAST CT THORACIC SPINE WO 2021-11-11 18:21:47 Love Reeves [facility] CONTRAST Medical Branch CONSENT/REFUSAL FOR 2021-11-11 17:30:43 Doctor Unassigned, [facility] Medical Branch TREATMENT DEXA AXIAL (HIP AND 2021-09-05 20:28:00 Requisition, Paper [facility] SPINE) Medical Fields NOTICE OF PRIVACY 2021-09-05 19:45:34 Doctor Unassigned, No [facility] PRACTICES Name Medical Branch CONSENT/REFUSAL FOR 2021-09-05 19:45:11 [facility] Medical Branch TREATMENT ASSIGNMENT OF BENEFITS 2021-09-05 19:44:48 Doctor Unassigned, No [facility] Medical Branch SARS-COV-2 COVID-19 2021-05-13 21:40:58 Doctor Unassigned, [facility] Medical Fields BOOSTER,0.25ML,IM (MODERNA) Plan of Care Planned Activity Planned Date Details Comments Source Future Scheduled 2022-10-17 65+ [facility]CCAL [facility] Test 09:37:40 VACCINE (1 - PCV) [code = 65+ PNEUMOCOCCAL VACCINE (1 - PCV)] Future Scheduled 2022-10-17 Hepatitis C screening [facility] Test 09:37:40 (procedure) [code = 030296633] Future Scheduled 2022-10-17 SHINGLES VACCINES (1 Met [facility] Test 09:37:40 of 2) [code = SHINGLES VACCINES (1 of 2)] Future Scheduled 2022-10-17 BREAST CANCER [facility] Test 09:37:40 SCREENING [code = BREAST CANCER SCREENING] Future Scheduled 2022-10-17 COLONOSCOPY SCREENING [facility] Test 09:37:40 [code = COLONOSCOPY SCREENING] Future Scheduled 2022-10-17 COVID-19 VACCINE (4 - [facility] Test 09:37:40 Booster for Moderna series) [code = COVID-19 VACCINE (4 - Booster for Moderna series)] Future Scheduled 2022-10-17 INFLUENZA VACCINE Method [facility] Hospital Test 09:37:40 [code = INFLUENZA VACCINE] Future Scheduled 2022-02-21 HEPATITIS B VACCINES Met [facility] Test 08:08:26 (1 of 3 - 3-dose series) [code = HEPATITIS B VACCINES (1 of 3 - 3-dose series)] Future Scheduled 2022-02-21 Hepatitis C screening [facility] Test 08:08:26 (procedure) [code = 030032813] Future Scheduled 2022-02-21 Screening for [facility] Test 08:08:26 malignant neoplasm of cervix (procedure) [code = 092064855] Future Scheduled 2022-02-21 BREAST CANCER [facility] Test 08:08:26 SCREENING [code = BREAST CANCER SCREENING] Future Scheduled 2022-02-21 COLONOSCOPY SCREENING [facility] Test 08:08:26 [code = COLONOSCOPY SCREENING] Future Scheduled 2022-02-21 SHINGLES VACCINES (1 Met [facility] Test 08:08:26 of 2) [code = SHINGLES VACCINES (1 of 2)] Future Scheduled 2022-02-21 COVID-19 VACCINE (4 - [facility] Test 08:08:26 Booster for Moderna series) [code = COVID-19 VACCINE (4 - Booster for Moderna series)] Future Scheduled 2022-02-21 INFLUENZA VACCINE Method [facility] Hospital Test 08:08:26 [code = INFLUENZA VACCINE] Future Scheduled 2022-02-21 65+ P[facility]UMOCOCCAL [facility] Test 08:08:26 VACCINE (2 - PCV) [code = 65+ PNEUMOCOCCAL VACCINE (2 - PCV)] Encounters Start End Encounter Admission Attending Care Care Encounter Source Date/Time Date/Time Type Type Clinicians Facility Department ID 2022-09-05 2022-09-05 CAV Paty 2.16.840. 2.16.840.1. CLAC [id number] Devoted 13:30:00 14:30:00 Fages [id number]. 925131.4.6. EH5 [facility] [id number] 2022-08-14 2022-08-14 Outpatient Fages_C [facility] [id number] Devoted 00:00:00 00:00:00 0313 Medica l Group 2022-08-14 2022-08-14 Outpatient Fages_C [facility] [id number] Devoted 00:00:00 00:00:00 0506 Medica l Group 2022-04-05 2022-04-05 Outpatient Nodal_J [facility] [id number] [id number] Devoted 00:00:00 00:00:00 1102 Medica l Group 2022-03-22 2022-03-22 [facility] 12.840.1 [id number] Methodi 11:17:16 23:59:00 Encounter Michael Capellan 99095.1.[address] 3.430.2.7 Hospit a .3.440870 l .8 2022-03-22 2022-03-22 Outpatient BINDMI, [facility] [id number] Ipava 00:00:00 00:00:00 MICHAEL [address] 2022-03-22 2022-03-22 Travel 1.2.840.1 1.2.154.566 [id number] Methodi 00:00:00 00:00:[address] 3.430.2.7 0.2.7.3.698 Ho spita .3.607574 084.8 l .8 2022-03-22 2022-03-22 Transcribe [facility], 1.2.840.1 [id number] Methodi 00:00:00 00:00:00 Orders Michael Capellan 83149.1.[address] 3.430.2.7 Hospit a .3.612157 l .8 2022-01-11 2022-01-11 [facility], 1.2.840.1 [id number] Methodi 10:47:41 23:59:00 Encounter Michael Capellan 92308.1.[address] 3.430.2.7 Hospit a .3.180299 l .8 2022-01-11 2022-01-11 [facility], 1.2.840.1 [id number] Methodi 10:47:30 23:59:00 Encounter Michael Capellan 93647.1.[address] 3.430.2.7 Hospit a .3.218149 l .8 2022-01-11 2022-01-11 [facility], 1.2.840.1 [id number] Ipava 00:00:00 00:00:00 Encounter MICHAEL 14842.1.1 [address] .3.365452 .8 2022-01-11 2022-01-11 [facility], 1.2.840.1 [id number] Ipava 00:00:00 00:00:00 Encounter MICHAEL 89870.1.1 [address] .3.754305 .8 2022-01-11 2022-01-11 Travel 1.2.840.1 1.2.439.994 [id number] Methodi 00:00:00 00:00:[address] 3.430.2.7 0.2.7.3.698 Ho spita .3.315157 084.8 l .8 2022-01-11 2022-01-11 Travel 1.2.840.1 1.2.370.691 [id number] Methodi 00:00:00 00:00:[address] 3.430.2.7 0.2.7.3.698 Ho spita .3.097039 084.8 l .8 2022-01-10 2022-01-10 Outpatient BINDAL, [facility] [id number] Ipava 00:00:00 00:00:00 MICHAEL [facility] 2022-01-03 2022-01-03 Travel 1.2.840.1 1.2.115.906 [id number] Methodi 00:00:00 00:00:[address] 3.430.2.7 0.2.7.3.698 Ho spita .3.460331 084.8 l .8 2022-01-03 2022-01-03 Travel 1.2.840.1 1.2.730.266 [id number] Methodi 00:00:00 00:00:[address] 3.430.2.7 0.2.7.3.698 Ho spita .3.541236 084.8 l .8 2021-12-30 2021-12-30 Transcribe Bindal, 1.2.840.1 [id number] [id number] Methodi 00:00:00 00:00:00 Orders Michael Capellan 77490.1.[address] 3.430.2.7 Hospit a .3.577815 l .8 2021-12-30 2021-12-30 Transcribe Bindal, 1.2.840.1 [id number] Methodi 00:00:00 00:00:00 Orders Michael Capellan 83782.1.[address] 3.430.2.7 Hospit a .3.595035 l .8 2021-12-16 2021-12-16 Outpatient [facility] [id number] Devoted 06:12:00 06:12:00 0715 Medica l Group 2021-11-11 2021-11-11 [facility] 1.2.145.759 [id number] Univers 12:36:00 18:17:00 Love [place] 350.1.13.10 i ty of [place] 4.2.7.2.686 [facility] [id number] [facility] 084 Branch 2021-11-11 2021-11-11 Emergency X REEVES, [facility] ERT [id number] Univers 12:36:00 18:17:00 LOVE ity of [facility] 2021-11-11 2021-11-11 Orders Doctor BEVERLEY 1.2.840.114 [id number] Univers 00:00:00 00:00:00 Only Unassigned, HONG 350.1.13.10 ity of [place] [facility] 4.2.7.2.686 Dave as [id number] [facility] 009 Branch 2021-11-01 2021-11-01 Outpatient DMG [facility] [id number] Devoted 09:01:00 09:01:00 0531 Medica l Group 2021-09-14 2021-09-14 Outpatient DMG [facility] [id number] 022 Devoted 02:00:00 02:00:00 0413 Medica l Group 2021-09-05 2021-09-05 Hospital Radiology [facility] 1.2.840.114 [id number] Univers 14:50:47 23:59:00 Encounter [place] 350.1.13.10 ity of [place] 4.2.7.2.686 [facility] [id number] [facility] 800 Branch 2021-09-05 2021-09-05 Outpatient R RADIOLOGY [facility] RAD [id number] Univers 14:45:56 14:49:00 ity of [facility] 2021-09-05 2021-09-05 Hospital Radiology [facility] 1.2.840.114 [id number] Univers 14:40:00 14:49:00 Encounter [place] 350.1.13.10 ity of [place] 4.2.7.2.686 [facility] [id number] [facility] 800 Branch 2021-05-13 2021-05-13 Outpatient R JESUS [facility] [id number] Univers 15:00:00 14:54:16 CHRIS [facility] 2021-05-13 2021-05-13 Imm/Inj Nurse, Adc Pob Immunization [facility] 1.2.840.114 [id number] Univers 14:54:04 14:54:16 Visit Alexander Cheathamleona [place] 350.1.13 .10 ity of [facility] 4.2.7.2.686 [place] [id number] Me dical NAL [address] [facility] 2021-03-25 2021-03-25 [place] [id number] Devoted 12:01:00 12:01:00 1022 Medica l Group 2020-08-29 2020-08-29 Outpatient [facility] [id number] Univers 10:55:00 10:55:00 [facility] 2020-08-01 2020-08-01 Outpatient [facility] [id number] Univers 11:45:00 [facility]:45[facility] 2017-02-05 2017-02-05 Urgent Provider, [facility] 1.2.840.114 [id number] Univers 13:45:00 14:00:00 [facility] 350.1.13.10 ity of SURGICAL 4.2.7.2.686 Dave as SPECIALTI [id number] Me dical ES 370 [facility] 2017-02-05 2017-02-05 [facility]patient [facility] [id number] Univers 13:45:00 13:45:00 [facility] Results This patient has no known results.
[2022-10-17] MEDS ORDERED: MECLIZINE HCL 12.5 MG TAB ONE (10:16)
[2022-10-17] MEDS ORDERED: ONDANSETRON 4 MG/2 ML VIAL ONE (10:16)
[2022-10-17 10:19] LABS: Absolute Lymphocytes (CBC) 2.3 K/uL (0.7-4.9); Hematocrit 39.3 % (36.0-45.0); Lymphocytes % 35.5 % (15.3-44.8); MCV 86.7 fL (80-100); RBC Red Blood Cell Count 4.54 M/uL (3.86-4.86)
[2022-10-17 10:24] LABS: Protime INR 0.92
[2022-10-17 10:39] LABS: Troponin High Sensitivity 4.7 pg/mL (<58.9)
--- NOTE | 2022-10-17 10:39 | RAD REPORT ---
EXAM DESCRIPTION: CT - Head Brain Wo Cont - 10/17/2022 10:32 am CLINICAL HISTORY: DIZZINESS COMPARISON: Head angio dated 10/17/2022 TECHNIQUE: Noncontrast head CT images ad were obtained without IV contrast. Multiplanar reformats we re generated and reviewed. All CT scans are performed using dose optimization technique as appropriate and may include automated exposure control or mA/KV adjustment according to patient size. FINDINGS: No intracranial hemorrhage, mass, or edema. Midline structures are unremarkable. Normal ventricular caliber for age. Ma-white matter differentiation is preserved, without evidence of acute infarct. No abnormal extra- axial fluid collections. Mastoid air cells and visualized portions of the paranasal sinuses are clear. No acute bony findings. IMPRESSION: No evidence of an acute intracranial process.
--- NOTE | 2022-10-17 11:06 | RAD REPORT ---
EXAM DESCRIPTION: CT - Neck Angio - 10/17/2022 10:33 am CLINICAL HISTORY: dizziness COMPARISON: No comparisons TECHNIQUE: Axial CT angiography images of the head was performed with multiplanar and maximum intens ity projection reconstructions. Images performed following intravenous administration of 100mL Isovue 370. All CT scans are performed using dose optimization technique as appropriate and may include automated exposure control or mA/KV adjustment according to patient size. Quantification of carotid stenosis, if any, is performed according to NASCET criteria. FINDINGS: A left aortic arch is identified with normal three vessel configuration of the great vesse ls. No significant flow abnormality is seen of the common carotid bilaterally. No significant stenosis is identified involving the cervical segments of both internal carotid arteri es. Normal flow is seen within both vertebral arteries. Bilateral small thyroid hypoattenuating lesions, not well characterized on CT. IMPRESSION: No significant flow abnormality of the neck vessels is identified.
--- NOTE | 2022-10-17 11:30 | RAD REPORT ---
EXAM DESCRIPTION: CT - Head angio - 10/17/2022 10:32 am CLINICAL HISTORY: DIZZINESS COMPARISON: Neck Angio dated 10/17/2022; Head Brain Wo Cont dated 10/17/2022 TECHNIQUE: Axial CT angiography images of the head was performed with multiplanar and maximum intens ity projection reconstructions. Images performed following intravenous administration of 100mL Isovue 370. All CT scans are performed using dose optimization technique as appropriate and may include automated exposure control or mA/KV adjustment according to patient size. FINDINGS: No evidence of large vessel occlusion. No evidence of aneurysm or dissection flap is detec rich. No flow-limiting stenosis or vascular malformation identified. Antegrade flow is seen in the vertebral arteries. The vertebral arteries are codominant. The visualized dural venous sinuses are grossly patent. IMPRESSION: No evidence of large vessel occlusion or flow-limiting stenosis.
--- NOTE | 2022-10-17 11:31 | RAD REPORT ---
EXAM DESCRIPTION: RADChest Single View10/17/2022 10:23 am CLINICAL HISTORY: weakness COMPARISON: Chest Single View dated 03/01/2022 TECHNIQUE: Portable AP view of the chest. FINDINGS: The lungs are clear. No pneumothorax or effusion. The cardiomediastinal contours are unrem arkable. IMPRESSION: No acute cardiopulmonary process.
[2022-10-17] MEDS ORDERED: NA CHLORIDE 0.9% 500 ML ONE (12:19)
[2022-10-17] MEDS ORDERED: DIAZEPAM 10 MG/2 ML INJ SYRINGE ONE (12:19)
--- NOTE | 2022-10-17 13:34 | EDPHYS ---
Physician Documentation [facility] Name: Shantelle Hoover Age: 67 yrs Sex: Female : 1955 Arrival Date: 10/17/2022 Time: 09:34 Bed 13 Private MD: Perry Melara ED Physician Brandon Meng HPI: 10/17 09:55 This 67 yrs old Female presents to ER via Ambulatory with complaints of jmm Dizziness. 09:55 The patient presents with dizziness. Onset: The symptoms/episode began/occurred jmm acutely, 4 day(s) ago. Modifying factors: The symptoms are alleviated by holding head still, lying down, the symptoms are aggravated by movement of head, standing up, changing position. Associated signs and symptoms: Pertinent positives: nausea. This is a 67-year-old female with history of diabetes mellitus, hypertension the presents emerged department with complaints of dizziness worsened by change in position. Patient had similar episode which she states was decades ago. Also complains of nausea but denies any vomiting. Has a mild headache as well. Patient states feeling pressure in her brain. Historical: - Allergies: 10:05 No Known Allergies; iw - Home Meds: 10:05 alendronate Oral [Active]; iw - PMHx: 10:05 diabetes mellitus; Osteoporosis; Hypertensive disorder; iw - PSHx: 10:05 shoulder; iw - Immunization history:: Adult Immunizations. - Social history:: Smoking status: Patient denies any tobacco usage or history of. ROS: 09:55 Constitutional: Negative for fever, chills, and weight loss, Cardiovascular: Negative jmm for chest pain, palpitations, and edema, Respiratory: Negative for shortness of breath, cough, wheezing, and pleuritic chest pain. 09:55 Neuro: Positive for dizziness, headache. 09:55 All other systems are negative. Exam: 09:55 Constitutional: This is a well developed, well nourished patient who is awake, alert, jmm and in no acute distress. Head/Face: atraumatic. 09:55 ENT: Moist Mucus Membranes Neck: Trachea midline, Supple Chest/axilla: Normal chest wall appearance and motion. Cardiovascular: Regular rate and rhythm. No edema appreciated Respiratory: Normal respirations, no respiratory distress appreciated Abdomen/GI: Non distended Back: Normal ROM Skin: General appearance color normal MS/ Extremity: Moves all extremities, no obvious deformities appreciated, no edema noted to the lower extremities 09:55 Eyes: Nystagmus: Horizontal fatigable nystagmus. 09:55 Neuro: Cerebellar function: normal finger to nose testing. 09:55 Psych: Behavior/mood is pleasant, cooperative. Vital Signs: 10:02 BP 119 / 68; Pulse 60; Resp 16; Temp 98.1; Pulse Ox 97% on R/A; Weight 92.99 kg; Height iw 5 ft. 7 in. ; 10:24 BP 112 / 67; Pulse 64; Resp 16; Pulse Ox 99% on R/A; ko1 11:15 BP 106 / 61; Pulse 59; Resp 18; Pulse Ox 96% on R/A; ld1 12:16 BP 103 / 61; Pulse 61; Resp 18; Pulse Ox 100% on R/A; ld1 13:45 BP 101 / 62; Pulse 65; Resp 18; Pulse Ox 100% on R/A; ld1 10:02 Body Mass Index 32.11 (92.99 kg, 170.18 cm) iw MDM: 09:55 Patient medically screened. [facility] 13:32 Differential diagnosis: CVA, idiopathic dizziness, TIA, vertigo. Data reviewed: vital [facility] signs, nurses notes, lab test result(s), radiologic studies, CT scan. Consideration of Admission/Observation Escalation of care including admission/observation considered. I considered the following discharge prescriptions or medication management in the emergency department Medications were administered in the Emergency Department. See MAR. 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 Counseling: I had a detailed discussion with the patient and/or guardian regarding: the historical points, exam findings, and any diagnostic results supporting the discharge/admit diagnosis, lab results, radiology results, the need for outpatient follow up, to return to the emergency department if symptoms worsen or persist or if there are any questions or concerns that arise at home. ED course: Symptoms alleviated in the ED. Patient has normal cerebellar exam, CTA was negative. I do not currently suspect a central cause. Patient advised to follow-up with neurology and then ENT for further evaluation. Patient understood and agrees plan of care peer. 10/17 10:03 Order name: Basic Metabolic Panel; Complete Time: 10:47 [facility] 10/17 10:03 Order name: CBC with Diff; Complete Time: 10:26 [facility] 10/17 10:03 Order name: PT-INR; Complete Time: 10:26 [facility] 10/17 10:03 Order name: Troponin HS; Complete Time: 10:47 [facility] 10/17 11:01 Order name: CREATININE WHOLE BLOOD; Complete Time: 11:02 [facility] 10/17 10:03 Order name: XRAY Chest (1 view); Complete Time: 11:33 [facility] 10/17 10:03 Order name: CT Head Brain wo Cont; Complete Time: 10:47 [facility] 10/17 10:03 Order name: CT Neck Angio; Complete Time: 11:21 [facility] 10/17 10:03 Order name: CT Head Angio; Complete Time: 11:33 [facility] 10/17 10:03 Order name: EKG; Complete Time: 10: [facility] 10/17 10:03 Order name: Cardiac monitoring; Complete Time: 10:09 [facility] 10/17 10:03 Order name: EKG - Nurse/Tech; Complete Time: 10: [facility] 10/17 10:03 Order name: IV Saline Lock; Complete Time: 10:12 [facility] 10/17 10:03 Order name: Labs collected and sent; Complete Time: 10: [facility] 10/17 10:03 Order name: O2 Per Protocol; Complete Time: 10: [facility] 10/17 10:03 Order name: O2 Sat Monitoring; Complete Time: 10:08 [facility] Administered Medications: 10:15 Drug: Meclizine PO 50 mg Route: PO; ko1 10:15 Drug: Ondansetron IVP 4 mg Route: IVP; Site: right antecubital; ko1 12:16 Drug: Diazepam IVP 2 mg Route: IVP; Site: right antecubital; ld1 12:16 Drug: NS 0.9% IV 500 ml Route: IV; Rate: bolus; Site: right antecubital; ld1 Disposition: 14:57 Co-signature as Attending Physician, Brandon HDZ was immediately available on-site ms3 in the Emergency Department for consultation in the care of the patient. Disposition Summary: 10/17/22 13:33 Discharge Ordered Location: Home [facility] Condition: Stable [facility] Diagnosis - Dizziness and giddiness [facility] Followup: [facility] - With: Brian Mcdonald MD - When: 2 - 3 days - Reason: Recheck today's complaints, Continuance of care, Re-evaluation by your physician Discharge Instructions: - Discharge Summary Sheet kayy - Vertigo kayy - How to Perform the Aneesh Maneuver [facility] Forms: - Medication Reconciliation Form vicky - Thank You Letter kayy - Antibiotic Education kayy - Prescription Opioid Use vicky Prescriptions: - Meclizine 25 mg Oral Tablet - take 1 tablet by ORAL route every 8 hours As needed; 30 tablet; Refills: 0, [facility] Product Selection Permitted Signatures: Dispatcher [employer] EDMS Jonnie Benoit PA PA jmm Williams, Irene, RN RN iw Brandon Meng DO DO ms3 Lucina Meng RN RN ld1 Lesly Luis RN RN ko1
--- NOTE | 2022-10-17 13:34 | ER ---
Nurse's Notes [facility] Name: Shantelle Hoover Age: 67 yrs Sex: Female : 1955 Arrival Date: 10/17/2022 Time: 09:34 Bed 13 Private MD: Perry Melara Diagnosis: Dizziness and giddiness Presentation: 10/17 10:02 Chief complaint: Patient states: dizziness X 4-5 days , constant, has had a previous iw episode years ago, her head feels heavy and she is a little nauseous. Coronavirus screen: At this time, the client does not indicate any symptoms associated with coronavirus-19. Ebola Screen: Patient negative for fever greater than or equal to 101.5 degrees Fahrenheit, and additional compatible Ebola Virus Disease symptoms Patient denies exposure to infectious person. Patient denies travel to an Ebola-affected area in the 21 days before illness onset. No symptoms or risks identified at this time. Initial Sepsis Screen: Does the patient meet any 2 criteria? No. Patient's initial sepsis screen is negative. Does the patient have a suspected source of infection? No. Patient's initial sepsis screen is negative. Risk Assessment: Do you want to hurt yourself or someone else? Patient reports no desire to harm self or others. Onset of symptoms was October 13, 2022. 10:02 Method Of Arrival: Ambulatory iw 10:02 Acuity: JONATHAN 3 iw Historical: - Allergies: 10:05 No Known Allergies; iw - Home Meds: 10:05 alendronate Oral [Active]; iw - PMHx: 10:05 diabetes mellitus; Osteoporosis; Hypertensive disorder; iw - PSHx: 10:05 shoulder; iw - Immunization history:: Adult Immunizations. - Social history:: Smoking status: Patient denies any tobacco usage or history of. Screenin:05 [facility] ED Fall Risk Assessment (Adult) History of falling in the last 3 months, ko1 including since admission No falls in past 3 months (0 pts) Confusion or Disorientation No (0 pts) Intoxicated or Sedated No (0 pts) Impaired Gait No (0 pts) Mobility Assist Device Used No (0 pt) Altered Elimination No (0 pt) Score/Fall Risk Level 0 - 2 = Low Risk Oriented to surroundings, Maintained a safe environment, Educated pt \T\ family on fall prevention, incl call for assistance when getting out of bed, Assessed \T\ reinforced patient's understanding of fall precautions, Provided non-skid footwear, Hourly rounding (assess needs \T\ fall precautionary measures) done, Used ambulatory aids as needed (educated on \T\ assisted with), Used gait belt as appropriate. Abuse screen: Denies threats or abuse. Denies injuries from another. Nutritional screening: No deficits noted. Tuberculosis screening: No symptoms or risk factors identified. Assessment: 10:05 General: Appears in no apparent distress. uncomfortable, Behavior is calm, cooperative, ko1 appropriate for age. Pain: Denies pain. Neuro: No deficits noted. Cardiovascular: Reports lightheadedness. Respiratory: No deficits noted. GI: No deficits noted. : No deficits noted. EENT: No deficits noted. Derm: No deficits noted. Musculoskeletal: No deficits noted. 13:45 Reassessment: Patient appears in no apparent distress at this time. Patient and/or ld1 family updated on plan of care and expected duration. Pain level reassessed. Patient is alert, oriented x 3, equal unlabored respirations, skin warm/dry/pink. Vital Signs: 10:02 BP 119 / 68; Pulse 60; Resp 16; Temp 98.1; Pulse Ox 97% on R/A; Weight 92.99 kg; Height iw 5 ft. 7 in. ; 10:24 BP 112 / 67; Pulse 64; Resp 16; Pulse Ox 99% on R/A; ko1 11:15 BP 106 / 61; Pulse 59; Resp 18; Pulse Ox 96% on R/A; ld1 12:16 BP 103 / 61; Pulse 61; Resp 18; Pulse Ox 100% on R/A; ld1 13:45 BP 101 / 62; Pulse 65; Resp 18; Pulse Ox 100% on R/A; ld1 10:02 Body Mass Index 32.11 (92.99 kg, 170.18 cm) iw ED Course: 09:35 Patient arrived in ED. am2 09:35 Perry Melara DO is Private Physician. am2 09:37 Jonnie Benoit PA is PHCP. [facility] 09:37 Brandon Meng DO is Attending Physician. [facility] 09:54 Lesly Luis, KAYLIN is Primary Nurse. ko1 10:05 Triage completed. iw 10:05 Patient has correct armband on for positive identification. Bed in low position. Call ko1 light in reach. Client placed on continuous cardiac and pulse oximetry monitoring. NIBP monitoring applied. monitor worker on. Door closed. Noise minimized. Lights dimmed. Warm blanket given. 10:05 No provider procedures requiring assistance completed. Inserted saline lock: 20 gauge ko1 in right antecubital area, using aseptic technique. Blood collected. 10:06 Arm band placed on. iw 10:12 Basic Metabolic Panel Sent. ko1 10:12 CBC with Diff Sent. ko1 10:12 PT-INR Sent. ko1 10:12 Troponin HS Sent. ko1 10:25 XRAY Chest (1 view) In Process Unspecified. EDMS 10:32 CT Head Brain wo Cont In Process Unspecified. EDMS 10:34 CT Neck Angio In Process Unspecified. EDMS 10:34 CT Head Angio In Process Unspecified. EDMS 13:33 Brian Mcdonald MD is Referral Physician. m 14:08 IV discontinued, intact, bleeding controlled, No redness/swelling at site. ld1 Administered Medications: 10:15 Drug: Meclizine PO 50 mg Route: PO; ko1 10:15 Drug: Ondansetron IVP 4 mg Route: IVP; Site: right antecubital; ko1 12:16 Drug: Diazepam IVP 2 mg Route: IVP; Site: right antecubital; ld1 12:16 Drug: NS 0.9% IV 500 ml Route: IV; Rate: bolus; Site: right antecubital; ld1 Medication: 14:08 VIS not applicable for this client. ld1 Outcome: 13:33 Discharge ordered by . [facility] 14:08 Discharged to home ambulatory. ld1 14:08 Condition: stable 14:08 Discharge instructions given to patient, Instructed on discharge instructions, follow up and referral plans. medication usage, Demonstrated understanding of instructions, follow-up care, medications, Prescriptions given X 1. 14:08 Patient left the ED. ld1 Signatures: Dispatcher [employer] EDMS Jonnie Benoit PA PA jmm Williams, Irene, RN KAYLIN Viviana Farrell am2 Lucina Meng RN RN ld1 Lesly Luis RN RN ko1
[2022-10-17 14:23] VITALS: TEMP 98.1
[2022-10-17 14:28] VITALS: O2SAT 100
[2022-10-17 14:30] VITALS: BP 101/62
--- NOTE | 2022-10-18 11:48 | EKG ---
Test Date: 2022-10-17 Test Time: 10:06:21 Metal Hanging Helper: LYNNE MEASUREMENT RESULTS: Intervals: Rate: 61 WV: 144 QRSD: 66 QT: 424 QTc: 426 [place]: P: 64 WV: 144 QRS: 50 T: 46 INTERPRETIVE STATEMENTS: Normal sinus rhythm Low voltage QRS Cannot rule out Anterior infarct, age undetermined Abnormal ECG No previous ECG available for comparison Electronically Signed On 10-18-22 11:44:56 CDT by Solomon Skelton
== END 2022-10-17 14:08 | disposition home or self-care (01) ==
LOC: ER 09:34
DX: R42 Dizziness and giddiness (principal); R51.9 Headache, unspecified; E11.9 Type 2 diabetes mellitus without complications; I10 Essential (primary) hypertension
CPT/HCPCS: 93005; 85025; 80048; 36415; 85610; 82565; 84484; 70450; 70496; 70498; 71045; 96375; 96374; 99285; Q9967; J8597; J3360; J2405; J7040

== ENCOUNTER 2024-02-19 15:06 | Emergency (ER) | payer MEDICARE ==
[2024-02-19] MEDS ORDERED: FAMOTIDINE 20 MG/2 ML VIAL IV ONE (16:03)
[2024-02-19] MEDS ORDERED: ONDANSETRON 4 MG/2 ML VIAL ONE (16:03)
[2024-02-19] MEDS ORDERED: NA CHLORIDE 0.9% 1,000 ML ONE (16:03)
[2024-02-19 16:15] LABS: Absolute Lymphocytes (CBC) 0.8 K/uL (0.7-4.9); Absolute Monocytes 0.8 K/uL (0.1-1.3); Absolute Neutrophil 11.8 K/uL (1.8-8.0); Basophils % 0.2 % (0-1.3); Eosinophils % 0.1 % (0-4.4); Hematocrit 38.6 % (36.0-45.0); Hemoglobin 12.9 g/dL (12.0-15.0); Lymphocytes % 6.1 % (15.3-44.8); MCH 29.1 pg (27.0-35.0); MCHC 33.3 g/dL (32.0-36.0); MCV 87.3 fL (80-100); MPV 8.4 fL (7.6-11.3); Monocytes % 5.8 % (3.3-12.3); Neutrophils % 87.8 % (41.7-73.7); Platelets 216 thou/uL (152-406); RBC Red Blood Cell Count 4.43 M/uL (3.86-4.86); Red Cell Distribution Width 13.4 % (12.1-15.2)
[2024-02-19 16:34] LABS: Albumin 3.7 g/dL (3.4-5.0); Albumin/Globulin Ratio 0.8 (1.1-1.8); Anion Gap 7.6 mEq/L (5.0-15.0); Bilirubin Total 0.5 mg/dL (0.2-1.0); Globulin 4.5 g/dL (2.3-3.5); Potassium 3.6 mEq/L (3.5-5.1); Protein, Total 8.2 g/dL (6.4-8.2); Troponin High Sensitivity 3.3 pg/mL (<58.9)
--- NOTE | 2024-02-19 17:09 | RAD REPORT ---
EXAMINATION: ONE VIEW CHEST XR CLINICAL INDICATION: Female, 68 years old. [facility] MAIN CHEST PAIN Bed Name: 2 TECHNIQUE: Frontal chest projection is submitted. Examination is limited by patient positioning and t echnique. COMPARISON: 10/17/2022 FINDINGS: The lungs are well inflated and clear. No pneumothorax or sizable effusion. The heart is normal in s ize. IMPRESSION: No acute intrathoracic abnormalities.
[2024-02-19 17:15] LABS: Specific Gravity 1.022 (1.005-1.030); Sqamous Epithelial <5 /HPF (None Seen); Urine Bacteria None Seen /HPF (<20); Urine Bilirubin NEGATIVE (Negative); Urine Blood 2+ (Negative); Urine Clarity Clear (Clear); Urine Color Light-Yellow (Yellow); Urine Culture Reflex Order NOT NEEDED; Urine Glucose NEGATIVE (Negative); Urine Ketones NEGATIVE (Negative); Urine Microscopic Reflex YN ORDER UMIC; Urine Mucus 1+ /HPF (None Seen); Urine Nitrite NEGATIVE (Negative); Urine Protein 1+ (Negative); Urine RBC <5 /HPF (None Seen); Urine Urobilinogen Normal (Normal); Urine WBC <5 /HPF (<5); Urine pH 5.5 (5.0-7.0)
--- NOTE | 2024-02-19 17:56 | RAD REPORT ---
EXAMINATION: CT ABDOMEN AND PELVIS WITH CONTRAST CLINICAL INDICATION: Female, 68 years old. [facility] MAIN ABD PAIN IV ONLY Bed Name: 2 TECHNIQUE: CT abdomen and pelvis was performed, after the administration of IV contrast, as per [facility] protocol. Axial, sagittal and coronal reconstructions were obtained. One or more of the following dose reduction techniques were used: Automated exposure control, adjustment of the mA and k V according to patient size, and iterative reconstruction. Unless otherwise specified, incidental findings do not require dedicated imaging follow-up. COMPARISON: The of both the obstetrical FINDINGS: LOWER CHEST: The visualized lung bases are clear. LIVER: Normal in size and contour. No focal lesion. BILIARY SYSTEM: Gallbladder is not well-visualized, possibly surgically removed. Prominence of the co mmon bile duct, may relate to reservoir effect. SPLEEN: Normal size. No focal lesion. PANCREAS: No mass, ductal dilation, or darwin-pancreatic fluid. ADRENALS: Normal; no mass. KIDNEYS: Normal size and contour. No hydronephrosis. Benign appearing exophytic right superior pole 4 .7 cm cyst and a smaller left cortical mid to lower pole cyst noted. URINARY BLADDER: Suboptimally distended limiting evaluation. GASTROINTESTINAL TRACT: No evidence of free air, significant intra-abdominal free fluid, bowel obstru ction or abscess. Colonic diverticulosis. APPENDIX: Normal appendix. LYMPH NODES: No lymphadenopathy. MUSCULOSKELETAL: No acute or suspicious osseous abnormality. ADDITIONAL FINDINGS: Uterus is retroflexed, with somewhat bulky appearance of the fundus, underlying fibroids. IMPRESSION: No acute or concerning abnormalities seen in the abdomen or pelvis. Incidentally noted is colonic diverticulosis and other incidental findings as above.
--- NOTE | 2024-02-19 18:11 | EDPHYS ---
Physician Documentation [facility] Name: Shantelle Hoover Age: 68 yrs Sex: Female : 1955 Arrival Date: 02/19/2024 Time: 15:06 Bed 2 Private MD: ED Physician Colin Washington HPI: 02/18 19:29 This 68 yrs old Female presents to ER via Ambulatory with complaints of kb Vomiting/Diarrhea, Abdominal Pain. 19:29 Patient is a 68-year-old female who presents for nausea, vomiting, diarrhea and upper kb abdominal pain that started yesterday. Denies fever chills, urinary symptoms, chest pain, shortness of breath.. Historical: - Allergies: 15:35 No Known Allergies; iw - PMHx: 15:34 diabetes mellitus; Hypercholesterolemia; Hypertensive disorder; Osteoporosis; iw - PSHx: 15:34 anupam; Shoulder; iw - Immunization history:: Adult Immunizations not up to date. - Infectious Disease History:: Denies. - Social history:: Smoking status: Patient denies any tobacco usage or history of. ROS: 19:26 Constitutional: As per HPI kb Exam: 19:26 Constitutional: This is a well developed, well nourished patient who is awake, alert, kb and in no acute distress. Head/Face: Normocephalic, atraumatic. ENT: Moist Mucous membranes Cardiovascular: Regular rate Respiratory: Respirations even and unlabored. No increased work of breathing. Talking in full sentences Back: No spinal tenderness. No costovertebral tenderness. Full range of motion. Skin: Warm, dry with normal turgor. Normal color. MS/ Extremity: Pulses equal, no cyanosis. Neurovascular intact. Full, normal range of motion. Neuro: Awake and alert, GCS 15, oriented to person, place, time, and situation. Moves all extremities. Normal gait. 19:26 ECG was reviewed by the Attending Physician. 19:26 Abdomen/GI: Inspection: abdomen appears normal, Bowel sounds: normal, Palpation: soft, in all quadrants, mild abdominal tenderness, in the epigastric area, Vital Signs: 15:33 BP 98 / 71; Pulse 66; Resp 18; Temp 98.2; Pulse Ox 98% on R/A; Weight 87.09 kg; Height iw 5 ft. 4 in. ; Pain 7/10; 16:01 BP 110 / 69; Pulse 70; Resp 17; Pulse Ox 99% on R/A; rs5 17:30 BP 105 / 70; Pulse 74; Resp 17; Pulse Ox 99% on R/A; rs5 18:22 BP 107 / 65; Pulse 69; Resp 17; Pulse Ox 99% on R/A; rs5 15:33 Body Mass Index 32.96 (87.09 kg, 162.56 cm) iw 15:33 Pain Scale: Adult iw MDM: 15:16 Patient medically screened. kb 19:28 Differential diagnosis: Nonspecific abd pain, gastritis, diverticulitis, viral kb gastroenteritis, GERD. Data reviewed: vital signs, nurses notes. Historians other than the Patient: Daughter/Son: daughter. Counseling: I had a detailed discussion with the patient and/or guardian regarding the historical points, exam findings, and any diagnostic results supporting the discharge/admit diagnosis, lab results, radiology results, the need for outpatient follow up, a family practitioner, to return to the emergency department if symptoms worsen or persist or if there are any questions or concerns that arise at home. ED course: Pt feeling better after treatment, tolerating po intake. Pt and daughter educated on diagnostic results and need for follow up with pcp. Verbal understanding received. . 02/18 15:53 Order name: CBC with Diff; Complete Time: 16:32 kb 02/18 15:53 Order name: CMP; Complete Time: 16:38 kb 02/18 15:53 Order name: Lipase; Complete Time: 16:38 kb 02/18 15:53 Order name: Urinalysis w/ reflexes; Complete Time: 17:18 kb 02/18 15:53 Order name: Troponin HS; Complete Time: 16:38 kb 02/18 15:53 Order name: CT Abd/Pelvis - IV Contrast Only; Complete Time: 17:59 kb 02/18 15:53 Order name: XRAY Chest (1 view); Complete Time: 17:11 kb 02/18 15:53 Order name: EKG; Complete Time: 15:53 kb 02/18 15:53 Order name: IV Saline Lock; Complete Time: 16:10 kb 02/18 15:53 Order name: Labs collected and sent; Complete Time: 16:10 kb 02/18 15:53 Order name: Cardiac monitoring; Complete Time: 16:27 kb 02/18 15:53 Order name: EKG - Nurse/Tech; Complete Time: 16:27 kb EC:26 Rate is 76 beats/min. Rhythm is regular. QRS [place] is Normal. VT interval is normal at kb 144 msec. QRS interval is normal at 68 msec. QT interval is normal at 459 msec. Administered Medications: 16:00 Drug: NS 0.9% IV 1000 ml IV at 1 bolus Per protocol; 1000 mL bolus Route: IV; Rate: 1 rs5 bolus; Site: left antecubital; 17:05 Follow up: Response: No adverse reaction; IV Status: Completed infusion rs5 16:00 Drug: Famotidine IVP 20 mg IVP once; dilute with 10 mL 0.9% NaCl; give over 2 minutes rs5 Route: IVP; Site: left antecubital; 16:20 Follow up: Response: No adverse reaction rs5 16:00 Drug: Ondansetron IVP 4 mg IVP once; over 2 minutes Route: IVP; Site: left antecubital; rs5 16:20 Follow up: Response: No adverse reaction rs5 Disposition Summary: 02/19/24 18:10 Discharge Ordered Notes: Location: Home kb Condition: Stable kb Diagnosis - Upper abdominal pain, unspecified kb - Nausea with vomiting, unspecified kb - Diarrhea, unspecified kb Followup: kb - With: Emergency Department - When: As needed - Reason: Worsening of condition Followup: kb - With: Private Physician - When: 2 - 3 days - Reason: Recheck today's complaints, Continuance of care, Re-evaluation by your physician Discharge Instructions: - Discharge Summary Sheet kb - Viral Gastroenteritis, Adult, [id number] kb Forms: - Medication Reconciliation Form kb - Antibiotic Education kb - Prescription Opioid Use kb - Patient Portal Instructions kb - Leadership Thank You Letter kb Prescriptions: - Zofran 4 mg Oral tablet - take 1 tablet ORAL route every 6 hours As needed; 12 tablet; Refills: 0, kb Product Selection Permitted - dicyclomine 20 mg Oral tablet - take 1 tablet ORAL route 4 times per day As needed; 20 tablet; Refills: 0, kb Product Selection Permitted Signatures: Dispatcher [employer] Martha Hunt, JANIS CARRANZA-Gay Navas RN RN Gino Hooper RN RN rs5 Corrections: (The following items were deleted from the chart) 15:54 15:53 CBC+H.LAB.BRZ ordered. EDMS EDMS 15:54 15:53 COMPREHENSIVE METABOLIC PANEL+C.LAB.BRZ ordered. EDMS EDMS 15:54 15:53 LIPASE+C.LAB.BRZ ordered. EDMS EDMS 15: 15:53 Urinalysis+U.LAB.BRZ ordered. EDMS EDMS 15:54 15:53 Troponin High Sensitivity+C.LAB.BRZ ordered. EDMS EDMS
--- NOTE | 2024-02-19 18:11 | ER ---
Nurse's Notes [facility] Name: Shantelle Hoover Age: 68 yrs Sex: Female : 1955 Arrival Date: 02/19/2024 Time: 15:06 Bed 2 Private MD: Diagnosis: Upper abdominal pain, unspecified;Nausea with vomiting, unspecified;Diarrhea, unspecified Presentation: 02/18 15:33 Chief complaint: Patient's son or daughter states: she has been vomiting and having iw diarrhea since yesterday, also has stomach pains and chills. Coronavirus screen: Client presents with at least one sign or symptom that may indicate coronavirus-19. Ebola Screen: No symptoms or risks identified at this time. Initial Sepsis Screen: Does the patient meet any 2 criteria? No. Patient's initial sepsis screen is negative. Does the patient have a suspected source of infection? No. Patient's initial sepsis screen is negative. Risk Assessment: Do you want to hurt yourself or someone else? Patient reports no desire to harm self or others. Onset of symptoms was February 18, 2024. 15:33 Method Of Arrival: Ambulatory iw 15:33 Acuity: JONATHAN 3 iw Historical: - Allergies: 15:35 No Known Allergies; iw - PMHx: 15:34 diabetes mellitus; Hypercholesterolemia; Hypertensive disorder; Osteoporosis; iw - PSHx: 15:34 anupam; Shoulder; iw - Immunization history:: Adult Immunizations not up to date. - Infectious Disease History:: Denies. - Social history:: Smoking status: Patient denies any tobacco usage or history of. Screenin:36 [facility] ED Fall Risk Assessment (Adult) History of falling in the last 3 months, rs5 including since admission No falls in past 3 months (0 pts) Confusion or Disorientation No (0 pts) Intoxicated or Sedated No (0 pts) Impaired Gait No (0 pts) Mobility Assist Device Used No (0 pt) Altered Elimination No (0 pt) Score/Fall Risk Level 0 - 2 = Low Risk Oriented to surroundings, Maintained a safe environment. Abuse screen: Denies threats or abuse. Nutritional screening: No deficits noted. Tuberculosis screening: No symptoms or risk factors identified. Assessment: 15:36 General: Appears in no apparent distress. uncomfortable, Behavior is calm, cooperative. rs5 Pain: Complains of pain in abdomen Pain currently is 2 out of 10 on a pain scale. Quality of pain is described as aching, Is continuous. Neuro: Level of Consciousness is awake, alert, obeys commands, Oriented to person, place, time, situation. Cardiovascular: Patient's skin is warm and dry. Respiratory: Airway is patent Respiratory effort is even, unlabored, Respiratory pattern is symmetrical. GI: Abdomen is round non-distended, Abd is soft and non tender X 4 quads. Reports nausea. : No signs and/or symptoms were reported regarding the genitourinary system. EENT: No signs and/or symptoms were reported regarding the EENT system. Derm: Skin is intact, Skin is pink, warm \T\ dry. Musculoskeletal: Range of motion: intact in all extremities. 16:31 Reassessment: Patient and/or family updated on plan of care and expected duration. Pain rs5 level reassessed. Patient is alert, oriented x 3, equal unlabored respirations, skin warm/dry/pink. Patient states feeling better. 17:40 Reassessment: No changes from previously documented assessment. rs5 18:21 Reassessment: Patient and/or family updated on plan of care and expected duration. Pain rs5 level reassessed. Patient is alert, oriented x 3, equal unlabored respirations, skin warm/dry/pink. Vital Signs: 15:33 BP 98 / 71; Pulse 66; Resp 18; Temp 98.2; Pulse Ox 98% on R/A; Weight 87.09 kg; Height iw 5 ft. 4 in. ; Pain 7/10; 16:01 BP 110 / 69; Pulse 70; Resp 17; Pulse Ox 99% on R/A; rs5 17:30 BP 105 / 70; Pulse 74; Resp 17; Pulse Ox 99% on R/A; rs5 18:22 BP 107 / 65; Pulse 69; Resp 17; Pulse Ox 99% on R/A; rs5 15:33 Body Mass Index 32.96 (87.09 kg, 162.56 cm) iw 15:33 Pain Scale: Adult iw ED Course: 15:09 Patient arrived in ED. im 15:12 Martha Heath [facility]-C [facility] kb 15:12 Colin Washington MD is Attending Physician. kb 15:34 Triage completed. iw 15:35 Arm band placed on. iw 15:36 Patient has correct armband on for positive identification. Placed in gown. Bed in low rs5 position. Call light in reach. Side rails up X2. 15:36 No provider procedures requiring assistance completed. rs5 16:01 Gino Hooper, RN is Primary Nurse. rs5 16:09 Troponin HS Sent. bc6 16:10 CBC with Diff Sent. bc6 16:10 CMP Sent. bc6 16:10 Lipase Sent. bc6 16:10 Initial lab(s) drawn, by co, sent to lab. Inserted saline lock: 20 gauge in left bc6 antecubital area, using aseptic technique. Blood collected. Flushed with 10 mL NS. 16:40 XRAY Chest (1 view) In Process Unspecified. EDMS 17:03 CT Abd/Pelvis - IV Contrast Only In Process Unspecified. EDMS 18:20 Provided Education on: discharge instructions. rs5 18:22 IV discontinued, intact, bleeding controlled, No redness/swelling at site. Pressure rs5 dressing applied. Administered Medications: 16:00 Drug: NS 0.9% IV 1000 ml IV at 1 bolus Per protocol; 1000 mL bolus Route: IV; Rate: 1 rs5 bolus; Site: left antecubital; 17:05 Follow up: Response: No adverse reaction; IV Status: Completed infusion rs5 16:00 Drug: Famotidine IVP 20 mg IVP once; dilute with 10 mL 0.9% NaCl; give over 2 minutes rs5 Route: IVP; Site: left antecubital; 16:20 Follow up: Response: No adverse reaction rs5 16:00 Drug: Ondansetron IVP 4 mg IVP once; over 2 minutes Route: IVP; Site: left antecubital; rs5 16:20 Follow up: Response: No adverse reaction rs5 Medication: 16:32 VIS not applicable for this client. rs5 Outcome: 18:10 Discharge ordered by . desiree 18:22 Discharged to home ambulatory, rs5 18:22 Condition: stable 18:22 Discharge instructions given to patient, family, Instructed on discharge instructions, follow up and referral plans. medication usage, Demonstrated understanding of instructions, follow-up care, medications, Prescriptions given X 2, 18:23 Patient left the ED. rs5 Signatures: Dispatcher [employer] EDMS Martha Heath, GUEST HOUSE MANAGER-C GUEST HOUSE MANAGER-Ckb Gay Garcia, RN RN iw Gino Hooper RN RN rs5 Rebecca White 6 Josselin Cason Corrections: (The following items were deleted from the chart) 15:35 15:33 BP 98 / 71; Pulse 66bpm; Resp 18bpm; Pulse Ox 98% RA; EtCO2 192 mmHg; Temp 98.2F; iw Height 5 ft. 4 in.; iw 15:35 15:33 BP 98 / 71; Pulse 66bpm; Resp 18bpm; Pulse Ox 98% RA; Temp 98.2F; 87.09 kg; iw Height 5 ft. 4 in.; BMI: 32.9; Pain 7/10, Adult; iw 16:29 16:00 Famotidine IVP 20 mg IVP in right antecubital rs5 rs5 16:29 16:00 NS 0.9% IV 1000 ml IV at 1 bolus in right antecubital rs5 rs5 16:29 16:00 Ondansetron IVP 4 mg IVP in right antecubital rs5 rs5
[2024-02-19 18:46] VITALS: TEMP 98.2
[2024-02-19 18:48] VITALS: O2SAT 99
[2024-02-19 18:50] VITALS: BP 107/65
--- NOTE | 2024-02-21 12:24 | EKG ---
Test Date: 2024-02-19 Test Time: 16:14:05 [employer] Machine: DEMETRIO MEASUREMENT RESULTS: Intervals: Rate: 76 WY: 144 QRSD: 68 QT: 408 QTc: 459 [place]: P: 65 WY: 144 QRS: 24 T: 55 INTERPRETIVE STATEMENTS: Normal sinus rhythm Low voltage QRS Borderline ECG Compared to ECG 10/17/2022 10:06:21 Myocardial infarct finding no longer present Electronically Signed On 02-21-24 12:18:27 CDT by Larry Mckeon
== END 2024-02-19 18:23 | disposition home or self-care (01) ==
LOC: ER 15:06
DX: R10.13 Epigastric pain (principal); R11.2 Nausea with vomiting, unspecified; R19.7 Diarrhea, unspecified
CPT/HCPCS: 85025; 81001; 36415; 84484; 83690; 80053; 74177; 71045; Q9967; J2405; J7030; 93005; 96361; 96374; 96375; 99284